=== PATIENT | female | born 1940 | race Caucasian/White ===

== ENCOUNTER 2016-10-21 10:48 | Inpatient (IN) ==
[2016-10-17 17:07] LABS: Basophils # (Auto) 0 K/mcL (0.0-0.3); Basophils % (Auto) 0.3 % (0.0-2.0); Eosinophils # (Auto) 0.4 K/mcL (0.0-0.7); Eosinophils % (Auto) 4.9 % (0.0-7.0); Granulocytes % (Auto) 65.3 % (38.0-78.0); Lymphocytes # (Auto) 1.5 K/mcL (1.5-4.8); Lymphocytes % (Auto) 18.7 % (15.5-49.0); Mean Cell Volume 76.7 fL (80.0-100.0); Mean Corpuscular HGB Conc 31.4 g/dL (31.0-36.0); Mean Corpuscular Hemoglobin 24.1 pg (26.0-34.0); Monocytes # (Auto) 0.9 K/mcL (0.1-0.9); Monocytes % (Auto) 10.8 % (1.0-9.0); Platelet Count 507 K/mcL (140-440); RBC 3.84 M/mcL (4.00-5.20); Red Cell Distribution Width 16.7 % (11.5-14.5)
[2016-10-17 17:11] LABS: Appearance,Urine HAZY; Bacteria,Urine 0 /hpf (0); Bilirubin,Urine NEG (NEG); Calcium Oxalate Crystals,Urine FEW /hpf (0); Color,Urine YELLOW; Glucose,Urine (UA) NEGATIVE (NEG); Leukocyte Esterase,Urine 75 /uL (NEG); Mucus,Urine FEW /hpf (0); Nitrate,Urine NEG (NEG); Protein,Urine NEG (NEG); Specific Gravity,Urine 1.016 (1.000-1.035); Urine Blood NEG mg/dL (<0.03); Urine Hyaline Cast 1 /lpf (0-2); Urine RBC < 1 /hpf (0-1); Urine Squamous Epithelial Cell 4 /hpf (0-4); Urine Transitional Epi Cells 1 /hpf (0-2); Urine WBC 7 /hpf (0-4); Urobilinogen,Urine NEG (NEG)
[2016-10-17 17:22] LABS: Blood Urea Nitrogen 18 mg/dl (8-23)
[~2016-10-21 10:48] MED LIST: ACETAMINOPHEN 500 MG TABLET PO SCH; KETOROLAC 30 MG, ROPIVACAINE HCL/PF 49.5 ML, EPINEPHrine 0.5 MG, 0.9 % SODIUM CHLORIDE ... IJ ONE; PREGABALIN 150 MG CAPSULE PO SCH; ceFAZolin 1 GM VIAL IV SCH; oxyCODONE 10 MG TAB.ER.12H PO SCH
[2016-10-21] MEDS ORDERED: DEXAMETHASONE 10 MG/ML VIAL IV ONE (14:20)
[2016-10-21] MEDS ORDERED: LIDOCAINE HCL/PF 100 MG/5 ML SYRINGE IV ONE (14:20)
[2016-10-21] MEDS ORDERED: fentaNYL 250 MCG/5 ML VIAL IV ONE (14:20)
[2016-10-21] MEDS ORDERED: PROPOFOL 200 MG/20 ML VIAL IV ONE (14:20)
[2016-10-21] MEDS ORDERED: ONDANSETRON 4 MG/2 ML VIAL IV ONE (14:20)
[2016-10-21] MEDS ORDERED: MIDAZOLAM 5 MG/5 ML VIAL IV ONE (14:20)
[2016-10-21] MEDS ORDERED: ROPIVACAINE HCL/PF 30 ML VIAL IJ ONE (14:20)
[2016-10-21] MEDS ORDERED: TRANEXAMIC ACID 1,000 MG/10 ML VIAL IV ONE (14:20)
[2016-10-21] MEDS ORDERED: GENTAMICIN SULFATE 800 MG/20 ML VIAL IR ONE (14:56)
[2016-10-21] MEDS ORDERED: TOBRAMYCIN SULFATE 1.2 GM VIAL TOPICAL ONE ×2 (14:56)
[2016-10-21] MEDS ORDERED: diphenhydrAMINE 50 MG/ML VIAL IV PRN (15:12)
[2016-10-21] MEDS ORDERED: FLUMAZENIL 0.1 MG/ML ML IV PRN (15:12)
[2016-10-21] MEDS ORDERED: ONDANSETRON 4 MG/2 ML VIAL IV PRN ×2 (15:12→15:40)
[2016-10-21] MEDS ORDERED: METOPROLOL TARTRATE 5 MG/5 ML VIAL IV PRN (15:12)
[2016-10-21] MEDS ORDERED: ePHEDrine 50 MG/ML AMPUL IV PRN (15:12)
[2016-10-21] MEDS ORDERED: NALOXONE HCL 0.4 MG/ML VIAL IV PRN (15:12)
[2016-10-21] MEDS ORDERED: IPRATROPIUM/ALBUTEROL 3 ML AMPUL.NEB NEB PRN (15:12)
[2016-10-21] MEDS ORDERED: PROMETHAZINE 25 MG/ML VIAL IV PRN (15:12)
[2016-10-21] MEDS ORDERED: HYDROmorphone 2 MG/ML SYRINGE IV PRN ×2 (15:12→17:13)
[2016-10-21] MEDS ORDERED: ATROPINE SULFATE 0.4 MG/ML VIAL IV PRN (15:12)
[2016-10-21] MEDS ORDERED: BENZOCAINE/MENTHOL 1 LOZENGE PO PRN ×2 (15:12→15:40)
[2016-10-21] MEDS ORDERED: METHOCARBAMOL 1,000 MG/10 ML VIAL IV PRN (15:12)
[2016-10-21] MEDS ORDERED: MEPERIDINE 25 MG/ML SYRINGE IV PRN (15:12)
[2016-10-21] MEDS ORDERED: LACTATED RINGERS 1,000 ML IV SCH (15:15)
[2016-10-21] MEDS ORDERED: FLEETS ADULT ENEMA PR PRN (15:40)
[2016-10-21] MEDS ORDERED: POLYETHYLENE GLYCOL 3350 17 GM PACKET PO PRN (15:40)
[2016-10-21] MEDS ORDERED: TRANEXAMIC ACID 1,000 MG/10 ML VIAL IV SCH (15:40)
[2016-10-21] MEDS ORDERED: ACETAMINOPHEN 325 MG TABLET PO PRN (15:40)
[2016-10-21] MEDS ORDERED: BISACODYL 10 MG SUPP.RECT PR PRN (15:40)
[2016-10-21] MEDS ORDERED: MAGNESIUM HYDROXIDE 30 ML ORAL.SUSP PO PRN (15:40)
--- NOTE | 2016-10-21 15:50 | Brief Operative Note ---
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
[2016-10-21] MEDS: fentaNYL 100 MCG/2 ML VIAL IV PRN ×3 (15:52→16:04)
--- NOTE | 2016-10-21 16:12 | XRay Report ---
CLINICAL INFORMATION: Postop hemiarthroplasty COMPARISON: 03/11/2016 FINDINGS: Hemiarthroplasty changes of the lateral compartment tibiofemoral joint are noted. The lateral tibial plateau component is depressed approximately 3 mm with respect to the anatomic medial tibial plateau. Significance is unknown. No other osseous abnormality. Soft tissue swelling noted.. IMPRESSION: Lateral compartment tibiofemoral arthroplasty changes as described Interpreted and Authenticated by: Vahid Sanchez 10/21/16
[2016-10-21] MEDS ORDERED: SODIUM CHLORIDE 0.9% IV SCH (16:30)
[2016-10-21] MEDS ORDERED: GENTAMICIN SULFATE IV SCH (16:30)
[2016-10-21] MEDS: KETOROLAC 15 MG/ML VIAL IV SCH ×2 (17:33→23:55)
[2016-10-21] MEDS: 0.45 % SODIUM CHLORIDE 1,000 ML IV SCH (17:48)
[2016-10-21] MEDS: ASPIRIN 325 MG ENTERIC COATED TABLET PO SCH (20:23)
[2016-10-21] MEDS: HYDROcodone/APAP 10/325MG TABLET PO PRN (20:23)
[2016-10-21] MEDS: CALCIUM (OYSTER SHELL) 500 MG TABLET PO SCH (20:23)
[2016-10-21] MEDS: DOCUSATE SODIUM 100 MG CAPSULE PO SCH (20:23)
[2016-10-21] MEDS: SENNOSIDES 1 TABLET PO SCH (20:24)
[2016-10-21] MEDS: MINOCYCLINE 100 MG CAPSULE PO SCH (20:59)
[2016-10-21] MEDS ORDERED: DOCUSATE SODIUM 100 MG CAPSULE PO SCH (21:00)
[2016-10-21] MEDS ORDERED: RED YEAST RICE 1200 MG PO SCH (21:00)
[2016-10-21] MEDS ORDERED: CRANBERRY 400 MG PO SCH (21:00)
[2016-10-21] MEDS: CLINDAMYCIN 600 MG in DEXTROSE 5% IN WATER 50 ML IV SCH (21:07)
[2016-10-21] MEDS: 0.9 % SODIUM CHLORIDE 10 ML SYRINGE IV SCH (21:13)
[2016-10-22] MEDS: CLINDAMYCIN 600 MG in DEXTROSE 5% IN WATER 50 ML IV SCH (05:24)
[2016-10-22] MEDS: 0.9 % SODIUM CHLORIDE 10 ML SYRINGE IV SCH ×3 (05:26→20:27)
[2016-10-22] MEDS: KETOROLAC 15 MG/ML VIAL IV SCH ×3 (05:28→17:40)
[2016-10-22] MEDS: PANTOPRAZOLE 40 MG TABLET PO SCH (07:09)
[2016-10-22] MEDS: LEVOTHYROXINE 75 MCG TABLET PO SCH (07:10)
[2016-10-22] MEDS: 0.45 % SODIUM CHLORIDE 1,000 ML IV SCH ×2 (07:12)
--- NOTE | 2016-10-22 07:51 | Orthopedic Progress Note ---
Subjective Patient information: Note initiated : 10/22/16 at 7:50 am Service Date, if different from initiated Date: [] Patient: Elaine Pittman 76 y/o F admitted on 10/21/16 for First Stage Revision Total Knee - Removal of Knee. Chief Complaint: [Pt is stable this morning on post operative day 1 without any significant concerns or complaints. Patients vital signs have remained stable. Patients dressing is dry and exhibits a grossly intact neurovascular and neuromotor exam. Patients 10 point ROS is otherwise negative. ] Objective Vital signs: Vital Signs Temp Pulse Pulse Resp BP BP Pulse Ox 10/22/16 03:52 97.5 F L 82 18 122/70 96 10/22/16 00:00 96.6 F L 79 18 128/75 96 10/21/16 21:37 95 10/21/16 20:00 97.8 F 80 18 117/66 96 10/21/16 17:56 77 138/76 96 10/21/16 17:41 74 134/76 97 10/21/16 17:11 77 144/83 95 10/21/16 16:56 82 137/72 95 10/21/16 16:41 79 139/75 94 10/21/16 16:25 98.1 F 79 17 133/60 96 10/21/16 16:10 98.1 F 82 17 142/69 133/62 96 10/21/16 15:55 84 15 142/69 117/58 98 10/21/16 15:40 98.1 F 89 15 112/60 98 10/21/16 10:48 98.1 F 88 20 108/65 95 Intake and Output 10/21/16 10/22/16 10/22/16 21:59 05:59 13:59 Intake Total 2334 / 2334 100 / 100 Output Total 650 / 650 1924 / 1925 Balance 1684 / 1684 -1825 / -1825 Intake: IV 54 / 54 Dextrose 5% in Water 50 54 / 54 ml @ 100 mls/hr IV Q8H KOTA with Cleocin 600 mg Rx#:[id number] Oral 480 / 480 100 / 100 IV - Manual Only 1800 / 1800 Output: Urine Catheter Amount 600 / 600 1924 / 1924 Estimated Blood Loss 50 / 50 Other: Meal Dinner Pitts, fruit cup, cheese stick Percent of Meal Consumed 100% 100% Feeding Ability Independent Independent Weight 207 lb 8 oz Intake & Output: Intake & Output 10/21/16 10/22/16 10/22/16 21:59 05:59 13:59 Intake Total 2334 / 2334 100 / 100 Output Total 650 / 650 1924 Balance 1684 / 1684 -1825 / -1825 Weight 207 lb 8 oz Intake: IV 54 / 54 Dextrose 5% in Water 50 54 / 54 ml @ 100 mls/hr IV Q8H KOTA with Cleocin 600 mg Rx#:[id number] Oral 480 / 480 100 / 100 IV - Manual Only 1800 / 1800 Output: Urine Catheter Amount 600 / 600 1924 Estimated Blood Loss 50 / 50 Other: Meal Dinner Pitts, fruit cup, cheese stick Percent of Meal Consumed 100% 100% Feeding Ability Independent Independent Incision: Yes healing Incision clean and dry: Yes Dressing: Yes clean, Yes dry Weight bearing status: partial Neurological exam IM: Yes motor sensory intact, Yes neurovascular intact Extremities exam IM: Yes Foot pink and warm, Yes neurovascular intact - Labs CBC & BMP: 10/22/16 05:35 10/17/16 15:50 Labs: Orthopedic Labs 10/17/16 15:50 PT 13.8 INR 1.0 APTT 40 H 10/22/16 10/17/16 05:35 15:50 Hgb 9.3 L Hct 27.8 L 29.4 L Assessment and Plan (1) 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 We will f/u with the patient within 2-3 weeks for wound check. Status: Acute
--- NOTE | 2016-10-22 07:54 | Discharge Summary ---
Ortho Discharge - TKA - Patient Instructions Diet: Regular Diet Activity: activity as tolerated, weight bearing as tolerated Total Knee Protocol: For Total Knee: Start ROM ALISIA with stationary bike or rocking chair. Work on gaining full extension of knee. Posterior dislocation precautions provided. Hip abductor strengthening and gait training instructions provided. Apply Cryocuff as instructed. 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
--- NOTE | 2016-10-22 08:06 | Operative Note ---
DATE OF OPERATION: 10/21/2016 PREOPERATIVE DIAGNOSIS: Septic right knee with partial lateral knee replacement. POSTOPERATIVE DIAGNOSIS: Septic right knee with partial lateral knee replacement. PROCEDURE: Partial lateral compartment first stage knee replacement with antibiotic cement. SURGEON: Dar Finnegan MD MAIL HANDLER EQUIPMENT OPERATOR: Bronson Walton PA-C ANESTHESIA: General LMA anesthesia. COMPLICATIONS: None. TOTAL TOURNIQUET TIME: 43 minutes. IMPLANTS PLACED: Size 3 femur and size 3 tibial baseplate with a 12 mm poly. DESCRIPTION OF PROCEDURE: The patient was brought to the operating room and put to sleep with general LMA anesthesia. Once asleep, the patient had the right leg sterilely prepped and draped in the usual sterile fashion. Once done, we confirmed this was the operative site. Pre-op antibiotics were given and tranexamic acid. A midline incision was made and a lateral approach performed. There was some cloudy fluid that was removed with some bloody fluid. We performed a complete synovectomy throughout the medial, superior and lateral pouches. We then used flexible osteotomes to remove the femoral and tibial baseplates and the poly. Once this was done, we then thoroughly prepared the bone. The bony surface on the tibia had a membrane that had grown over the bone, seemed to be an indication of some infection under the baseplate. We then placed antibiotics with gentamicin and tobramycin. This was placed with a #3 tibial baseplate until dry, the femoral component also #3 femur until dry. Once this was done, we trialed a 10, 11, and 12 poly. The 12 poly seemed to be the most appropriate. We irrigated thoroughly and then used 2 bags, 3 liters each through the knee with gentamicin in the bag. We also used IrriSept to wash out the knee. Once this had all been completed, we then closed the knee with #0 double-armed Maxon interlocking stitch laterally. The patient tolerated this well. There was no complication. RBH:elise Job ID: [id number] Doc ID: [id number] Dar Finnegan MD
[2016-10-22] MEDS: CYANOCOBALAMIN (VITAMIN B-12) 500 MCG TABLET PO SCH (08:59)
[2016-10-22] MEDS: VITAMIN D3 1,000 UNIT TABLET PO SCH (09:00)
[2016-10-22] MEDS ORDERED: MELOXICAM 7.5 MG TABLET PO SCH (09:00)
[2016-10-22] MEDS: ASPIRIN 325 MG ENTERIC COATED TABLET PO SCH ×2 (09:01→18:59)
[2016-10-22] MEDS: DILTIAZEM 240 MG CAP.XL.24H PO SCH (09:01)
[2016-10-22] MEDS: CALCIUM (OYSTER SHELL) 500 MG TABLET PO SCH ×2 (09:01→19:00)
[2016-10-22] MEDS: MINOCYCLINE 100 MG CAPSULE PO SCH (09:02)
[2016-10-22] MEDS: LACTOBACILLUS 1 CAPSULE PO SCH (09:02)
[2016-10-22] MEDS: DOCUSATE SODIUM 100 MG CAPSULE PO SCH ×2 (09:02→19:01)
[2016-10-22] MEDS: HYDROcodone/APAP 10/325MG TABLET PO PRN (12:09)
--- NOTE | 2016-10-22 14:16 | Internal Medicine Consult Note ---
Medical - CN: HPI - Data of Consult Consult date: 10/22/16 Requesting Physician: [f_Reg Attending Provider] Primary Care Provider: [f_Reg Prim Care Provider] Family Provider: [f_Reg Family Provider] - Consult Narrative Reason for consult: Septic Arthrtitis Antibiotic Selection. History of present illness: Ms. Pittman is a 76 year old female who was admitted to the hospital by Dr Finnegan for Right knee debridement due to septic arthritis. The patient has h/o trauma to the knee in february last year, after which she developed septic arthritis. the patient has had debridement done in the past for same. Treated with nearly 6 weeks of IV vancomycin (to which she developed significant side effects), She was later changed to daptomycin for 4 weeks with resolution of her symptoms. Dr Ignacio her infectious disease specialist who was following her advised her to be on doxycycline 100mg bid for 3 months for prophylaxis. It seems that the patient did not take the prophylaxis due to affordibility. She was allergic to sulpha. Pt had repeat pain and flare up of the knee joint again last month. She was seen by ortho again, and Knee tap done, which had cloudy synovial fluid. Microbiology done showed MRSA. In the past also based on the notes from Dr Ignacio it seems the patient had MRSA. Patient right knee was debrided yesterday and medicine was consulted for selection of antibiotics. Patient sensitivity reviewed 2 strains of MRSA resitant to penicillin, cephalosporin, but sensitive to tetracycline, bactrim, rifampin, vancomycin, gentamycin, and clindamycin. CC: [f_Reg Attending Provider] - Constitutional Constitutional: Present: fatigue. Absent: chills, fever(s) - EENT Eyes: Absent: blind spots, blurry vision Nose, mouth and throat: Absent: bleeding gums, change in voice - Cardiovascular Cardiovascular: Absent: chest pain, chest pain at rest, palpatations, syncope - Respiratory Respiratory: Absent: cough - Gastrointestinal Gastrointestinal: Present: constipation. Absent: abdominal pain, nausea, vomiting - Genitourinary Genitourinary: Absent: hematuria, urinary frequency, urinary hesitancy - Musculoskeletal Musculoskeletal: Present: arthralgias, joint swelling - Integumentary Integumentary: Absent: jaundice - Neurological Neurological: Absent: focal weakness, syncope, vertigo - Psychiatric Psychiatric: Absent: anxiety, depression - Endocrine Endocrine: Absent: polydipsia, polyphagia, polyuria - Hematologic/Lymphatic Hematologic/Lymphatic: Absent: easy bleeding, easy bruising - Allergic/Immunologic Allergic/Immunologic: Absent: uticaria, wheezing Medical - CN: PMH Medical history: Medical History Bursitis of knee (Acute) UTI (urinary tract infection) (Acute) Vomiting (Acute) Hypokalemia (Acute) Nausea and vomiting (Acute) Hypokalemia (Acute) Rash and nonspecific skin eruption (Acute) Atypical chest pain (Acute) Plantar fasciitis of right foot (Acute) Strain of right knee (Acute) Venous embolism and thrombosis (Acute) Urinary tract infection (Acute) Thyroid nodule (Acute) Red blood cell antibody positive (Acute) Paroxysmal atrial fibrillation (Chronic) Osteoporosis screening (Acute) Acquired hypothyroidism (Chronic 11/17/13) Hyperlipidemia (Chronic) Fibrocystic breast disease (Chronic) Dyspepsia (Chronic) Degenerative arthritis (Chronic) Colon polyps (Chronic) Chest pain (Acute) Breast lump (Acute 03/17/13) Back pain (Chronic) Aortic regurgitation (Chronic) Anticoagulant long-term use (Chronic 11/09/13) Surgical history: Past Surgical History Hx of total shoulder replacement (Acute) 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 Medical - CN: Meds Home Medications Medication Instructions Recorded Confirmed Type cholecalciferol (vitamin D3) 1,000 1 tab PO DAILY tab 02/09/15 10/21/16 History unit tablet levothyroxine 75 mcg tablet 75 mcg PO ACB tab 02/09/15 10/21/16 History red yeast rice 600 mg capsule 1,200 mg PO BID cap 02/09/15 10/21/16 History diltiazem ER 240 mg 240 mg PO QDAY 90 Days 04/01/16 10/21/16 Rx capsule,extended release meloxicam 7.5 mg tablet 7.5 mg PO QDAY 90 Days 05/13/16 10/21/16 Rx Calcium Carbonate [Calcium] 500 mg PO BID 09/11/16 10/21/16 History Cranberry 400 mg PO BID 09/11/16 10/21/16 History Docusate Sodium [Colace] 300 mg PO HS 09/11/16 10/21/16 History Lactobacillus [Culturelle] 1 cap PO DAILY 09/11/16 10/21/16 History Omeprazole [Prilosec] 20 mg PO ACB 09/11/16 10/21/16 History cyanocobalamin (vit B-12) 1,000 1,000 mcg PO QDAY 10/07/16 10/21/16 History mcg tablet HYDROcodone/APAP 10/325MG [[place] 1 tab PO BIDP PRN 10/17/16 10/21/16 History 10/325Mg] Minocycline [Minocin] 100 mg PO BID 10/17/16 10/21/16 History Macrobid 100 mg Capsule 100 mg PO BID PRN 10/19/16 10/19/16 History Aspirin [Ecotrin] 325 mg PO BID #60 tab.ec 10/22/16 Rx Docusate Sodium [Colace] 100 mg PO BID #60 capsule 10/22/16 Rx HYDROcodone/APAP 10/325MG [[place] 1 - 2 tab PO Q4HP PRN #75 tablet 10/22/16 Rx 10/325Mg] Allergies Allergy/AdvReac Type Severity Reaction Status Date / Time vancomycin Allergy Severe Redness of Verified 10/04/16 15:30 Skin morphine Allergy Mild Rash Verified 10/04/16 15:30 Sulfa (Sulfonamide Allergy Mild Rash Verified 10/04/16 15:30 Antibiotics) aspirin AdvReac Mild Gastrointestinal Verified 10/04/16 15:30 Upset Medical - CN: Exam - Constitutional Vitals: Temp Pulse Resp BP Pulse Ox 98.3 F 97 H 18 142/83 95 10/22/16 12:00 10/22/16 12:00 10/22/16 12:00 10/22/16 12:00 10/22/16 12:00 General appearance: cooperative, no acute distress, obese - Head Head exam: Present: atraumatic, normal inspection - Eye Eye exam: Present: PERRL. Absent: periorbital swelling, periorbital tenderness , scleral icterus - ENT ENT exam: Present: mucous membranes moist, normal external ear exam - Neck Neck exam: Present: normal inspection - Respiratory Respiratory exam: Present: normal respiratory exam. Absent: accessory muscle use, respiratory distress, rhonchi, stridor, wheezes - Cardiovascular Cardiovascular exam: Present: normal rate and rhythm, +S1, +S2, systolic murmur - GI/Abdominal GI/Abdominal exam: Present: normal bowel sounds, soft. Absent: guarding, hernia , mass, rebound - Extremities Exam Additional comments: right leg in dression. no gross edema in left leg - Back Exam Back exam: Present: normal inspection. Absent: paraspinal tenderness - Neurological Exam Neurological exam: Present: alert, CN II-XII intact, oriented X3 - Psychiatric Psychiatric exam: Absent: agitated, anxious, flat affect - Skin Skin exam: Absent: urticaria, vesicles, warm Medical - CN: Result - Labs CBC & Chem 7: 10/22/16 05:35 10/17/16 15:50 Labs: Short CBC 10/22/16 Range/Units 05:35 Hct 27.8 L (36.0-48.0) % Medical - CN: A/P (1) Septic arthritis Status: Acute (2) Constipation Status: Acute - Narrative A/P Narrative: the patient has recurrent septic arthritis. Plan to start her on daptomycin 6mg/kg She will need a picc line antibiotic for 6 weeks as per ortho Outpatient follow up with Dr Ignacio Infectious disease. She will need weekly cbc, cmp, esr, crp nd CK levels Will get baseline labs of above today. Picc line today. For her consipation start her on senna ds at bed time.
[2016-10-22] MEDS ORDERED: 0.9 % SODIUM CHLORIDE 10 ML SYRINGE IV PRN (14:24)
[2016-10-22 14:48] LABS: Basophils # (Auto) 0 K/mcL (0.0-0.3); Basophils % (Auto) 0.1 % (0.0-2.0); Eosinophils # (Auto) 0.1 K/mcL (0.0-0.7); Eosinophils % (Auto) 1.2 % (0.0-7.0); Granulocytes % (Auto) 84.7 % (38.0-78.0); Lymphocytes # (Auto) 0.8 K/mcL (1.5-4.8); Mean Cell Volume 76.7 fL (80.0-100.0); Mean Corpuscular Hemoglobin 23.8 pg (26.0-34.0); Monocytes # (Auto) 0.8 K/mcL (0.1-0.9); Platelet Count 417 K/mcL (140-440); RBC 3.91 M/mcL (4.00-5.20); Red Cell Distribution Width 17.4 % (11.5-14.5)
[2016-10-22 15:00] LABS: ALT/SGPT < 5 U/l (0-40); Albumin 3.4 gm/dL (3.2-5.2); Albumin/Globulin Ratio 0.8 (1.0-2.3); Alkaline Phosphatase 120 U/L (39-117); Bilirubin,Direct < 0.2 mg/dL (0.0-0.3); Blood Urea Nitrogen 18 mg/dl (8-23); C-Reactive Protein 5.4 mg/dl (0.0-0.8); Creatine Kinase 33 IU/L (24-170); Gamma Glutamyl Transpeptidase 17 U/L (5-36); Phosphorous 1.9 mg/dL (2.7-4.5); Uric Acid 5.9 mg/dL (2.5-8.0)
[2016-10-22] MEDS: DAPTOmycin 500 MG VIAL IV SCH (15:09)
[2016-10-22 16:09] LABS: Erythrocyte Sedimentation Rate 101 mm/hr (0-20)
[2016-10-22] MEDS: SENNOSIDES/DOCUSATE SODIUM 1 TAB TABLET PO SCH (18:59)
[2016-10-22] MEDS: SENNOSIDES 1 TABLET PO SCH (19:01)
[2016-10-22] MEDS: TEMAZEPAM 15 MG CAPSULE PO PRN (20:26)
[2016-10-23] MEDS: KETOROLAC 15 MG/ML VIAL IV SCH ×4 (00:07→11:24)
[2016-10-23] MEDS: PANTOPRAZOLE 40 MG TABLET PO SCH (06:43)
[2016-10-23] MEDS: LEVOTHYROXINE 75 MCG TABLET PO SCH (06:43)
[2016-10-23] MEDS: 0.9 % SODIUM CHLORIDE 10 ML SYRINGE IV SCH ×3 (06:59→20:46)
--- NOTE | 2016-10-23 07:53 | Orthopedic Progress Note ---
Subjective Patient information: Note initiated : 10/23/16 at 7:51 am Service Date, if different from initiated Date: [] Patient: Elaine Pittman 76 y/o F admitted on 10/21/16 for First Stage Revision Total Knee - Removal of Knee. Chief Complaint: [eating well and will dc to home tomorrow] Objective Vital signs: Vital Signs Temp Pulse Resp BP Pulse Ox 10/23/16 07:39 96.7 F L 16 140/78 96 10/23/16 04:00 98.9 F 82 16 130/67 97 10/22/16 23:22 97.6 F 93 H 18 149/76 93 10/22/16 20:00 98.4 F 88 18 132/71 94 10/22/16 15:25 96.5 F L 86 16 128/64 94 10/22/16 12:00 98.3 F 97 H 18 142/83 95 10/22/16 07:57 16 97 Intake and Output 10/22/16 10/23/16 10/23/16 21:59 05:59 13:59 Intake Total 1210 / 1210 120 / 120 Output Total 1175 / 1175 1325 / 1325 500 / 500 Balance 35 / 35 -1205 / -1205 -500 / -500 Intake: Oral 1210 / 1210 120 / 120 Output: Void Amount 1175 / 1175 1325 / 1325 500 / 500 Other: Meal Dinner Percent of Meal Consumed 75% Feeding Ability Independent # Voids 1 Weight 204 lb Intake & Output: Intake & Output 10/22/16 10/23/16 10/23/16 21:59 05:59 13:59 Intake Total 1210 / 1210 120 / 120 Output Total 1175 / 1175 1325 / 1325 500 / 500 Balance 35 / 35 -1205 / -1205 -500 / -500 Weight 204 lb Intake: Oral 1210 / 1210 120 / 120 Output: Void Amount 1175 / 1175 1325 / 1325 500 / 500 Other: Meal Dinner Percent of Meal Consumed 75% Feeding Ability Independent # Voids 1 Incision: Yes healing Incision clean and dry: Yes Dressing: Yes clean Weight bearing status: full Neurological exam IM: Yes abnormal gait, Yes oriented X3, Yes neurovascular intact Extremities exam IM: Yes Foot pink and warm (dc home once out patient antibiotics will be ready and picc line is done), Yes neurovascular intact - Labs CBC & BMP: 10/22/16 13:25 10/22/16 13:25 Labs: Orthopedic Labs 10/17/16 15:50 PT 13.8 INR 1.0 APTT 40 H 10/22/16 10/22/16 10/17/16 13:25 05:35 15:50 Hgb 9.3 L 9.3 L Hct 30.0 L 27.8 L 29.4 L
[2016-10-23] MEDS: DILTIAZEM 240 MG CAP.XL.24H PO SCH (09:01)
[2016-10-23] MEDS: CALCIUM (OYSTER SHELL) 500 MG TABLET PO SCH ×2 (09:02→20:39)
[2016-10-23] MEDS: ASPIRIN 325 MG ENTERIC COATED TABLET PO SCH ×2 (09:02→20:39)
[2016-10-23] MEDS: VITAMIN D3 1,000 UNIT TABLET PO SCH (09:02)
[2016-10-23] MEDS: CYANOCOBALAMIN (VITAMIN B-12) 500 MCG TABLET PO SCH (09:02)
[2016-10-23] MEDS: DOCUSATE SODIUM 100 MG CAPSULE PO SCH ×2 (09:02→21:12)
[2016-10-23] MEDS: LACTOBACILLUS 1 CAPSULE PO SCH (09:03)
--- NOTE | 2016-10-23 10:55 | XRay Report ---
CLINICAL INFORMATION: PICC PLACEMENT COMPARISON: None. FINDINGS: PICC line tip overlies the SVC right atrial junction in satisfactory position. Mild cardiomegaly is unchanged. Mediastinum and pulmonary vessels are normal. Lungs show only minor lingular scarring. No effusions. IMPRESSION: No acute disease. PICC line satisfactory position Interpreted and Authenticated by: Vahid Sanchez 10/23/16
--- NOTE | 2016-10-23 13:01 | Internal Med Progress Note ---
Medical - PN: Subj Patient information: Note initiated : 10/23/16 at 12:59 pm Service Date, if different from initiated Date: [] Patient: Elaine Pittman 76 y/o F admitted on 10/21/16 for First Stage Revision Total Knee - Removal of Knee. Chief Complaint: [] Interval history: Pt seen examined no acute concerns. started on daptomycin tolerating it well She is awaiting a PICC line placement today, continue PT. Pertinent ROS: Denies headache, dizziness Denies chest pain, palpitations Denies cough or shortness of breath Denies abdominal pain, nausea or vomiting. - Constitutional Vitals: Vital Signs Temp Pulse Resp BP Pulse Ox 96.7 F L 82 16 140/78 96 10/23/16 07:39 10/23/16 04:00 10/23/16 07:39 10/23/16 07:39 10/23/16 07:39 Period Temp Pulse Resp BP Sys/Oh Pulse Ox Last 24 Hr 96.5 F-98.9 F 82-93 16-18 128-149/64-78 93-97 Intake and Output 10/22/16 10/23/16 10/23/16 21:59 05:59 13:59 Intake Total 1210 / 1210 120 / 120 180 / 180 Output Total 1175 / 1175 1325 / 1325 500 / 500 Balance 35 / 35 -1205 / -1205 -320 / -320 Weight 204 lb Intake & Output: Intake & Output 10/22/16 10/23/16 10/23/16 21:59 05:59 13:59 Intake Total 1210 / 1210 120 / 120 180 / 180 Output Total 1175 / 1175 1325 / 1325 500 / 500 Balance 35 / 35 -1205 / -1205 -320 / -320 Weight 204 lb Intake: Oral 1210 / 1210 120 / 120 180 / 180 Output: Void Amount 1175 / 1175 1325 / 1325 500 / 500 Other: Meal Dinner Breakfast Percent of Meal Consumed 75% 50% Feeding Ability Independent # Voids 1 1 Exam: Constitutional; Afebrile, cooperative, alert, not in distress. Eyes- No icterus, No periorbital swelling Ears- Ext ear normal, hearing normal to conversation. Neck- Midline trachea, supple Respiratory system: Air Entry equal on both sides, No crackles or wheezing, no rhonchi. CVS- Rate rhythm regular, S1,S2 heard, no gallop, no rub. Abdomen- Soft nontender abdomen, no organomegaly, no tenderness, no guarding or rigidity, INTERIOR PANELER- AOOx3, moving all extremities, no focal deficit noted. Medical - PN: Obj Da - Labs CBC & Chem 7: 10/22/16 13:25 10/22/16 13:25 Labs: Abnormal Lab Results 10/22/16 10/22/16 10/22/16 13:25 13:25 05:35 WBC 11.4 H RBC 3.91 L Hgb 9.3 L Hct 30.0 L 27.8 L MCV 76.7 L MCH 23.8 L RDW 17.4 H Gran % 84.7 H Lymph % (Auto) 7.0 L Gran # 9.6 H Lymph # 0.8 L ESR 101 H Glucose 140 H Phosphorus 1.9 L Alkaline Phosphatase 120 H C-Reactive Protein 5.4 H Globulin 4.5 H Albumin/Globulin Ratio 0.8 L Meds: Medications Acetaminophen (Tylenol) 650 mg PO Q6HP PRN PRN Reason: PAIN/FEVER > 101 Last Admin: 10/23/16 06:43 Dose: 650 mg Acetaminophen/Hydrocodone Bitart ([place] 10/325mg) 0 tab PO Q4HP PRN PRN Reason: Pain Last Admin: 10/22/16 12:09 Dose: 1 tab Aspirin (Ecotrin) 325 mg PO BID [facility] Last Admin: 10/23/16 09:02 Dose: 325 mg Bisacodyl (Dulcolax) 10 mg [place] Q2-3DAYS PRN PRN Reason: Constipation Last Admin: 10/23/16 12:40 Dose: 10 mg Calcium Carbonate/Glycine (Oscal) 500 mg PO BID [facility] Last Admin: 10/23/16 09:02 Dose: 500 mg Cyanocobalamin (Vitamin B-12) 1,000 mcg PO DAILY [facility] Last Admin: 10/23/16 09:02 Dose: 1,000 mcg Daptomycin (Cubicin) 560 mg 6 mg/kg (560 mg) IV Q24H [facility] Last Admin: 10/22/16 15:09 Dose: 560 mg Diltiazem HCl (Cardizem Cd) 240 mg PO DAILY [facility] Last Admin: 10/23/16 09:01 Dose: 240 mg Docusate Sodium (Colace) 100 mg PO BID [facility] Last Admin: 10/23/16 09:02 Dose: 100 mg Heparin Sodium (Porcine) (Heparin Flush) 2 ml IV Q12 [facility] Last Admin: 10/23/16 11:24 Dose: 2 ml Hydromorphone HCl (Dilaudid) 0 mg IV Q2HP PRN PRN Reason: Pain Lactobacillus Rhamnosus (Culturelle) 1 cap PO DAILY [facility] Last Admin: 10/23/16 09:03 Dose: 1 cap Levothyroxine Sodium (Synthroid) 75 mcg PO ACB [facility] Last Admin: 10/23/16 06:43 Dose: 75 mcg Magnesium Hydroxide (Milk Of Magnesia) 30 ml PO BIDP PRN PRN Reason: Constipation Ondansetron HCl (Zofran) 4 mg IV Q4HP PRN PRN Reason: Nausea And Vomiting Pantoprazole Sodium (Protonix) 40 mg PO QAMAC [facility] Last Admin: 10/23/16 06:43 Dose: 40 mg Polyethylene Glycol (Miralax) 17 gm PO DAILYP PRN PRN Reason: Constipation Senna (Senokot) 2 tab PO HS [facility] Last Admin: 10/22/16 19:01 Dose: Not Given Senna/Docusate Sodium (Senna Plus Tablet) 2 tab PO HS [facility] Last Admin: 10/22/16 18:59 Dose: 2 tab Sodium Biphosphate/Sodium Phosphate (Fleets Adult) 1 dose [place] Q3-4DAYS PRN PRN Reason: Constipation Sodium Chloride (Saline Flush) 10 ml IV Q8 [facility] Last Admin: 10/23/16 06:59 Dose: Not Given Sodium Chloride (Saline Flush) 10 ml IV UD PRN PRN Reason: FLUSH Temazepam (Restoril) 15 mg PO HSP PRN PRN Reason: Insomnia Last Admin: 10/22/16 20:26 Dose: 15 mg Throat Lozenges (Cepacol) 1 lozenge PO PRN PRN PRN Reason: Sore Throat Vitamin D (Vitamin D3) 1,000 unit PO DAILY [facility] Last Admin: 10/23/16 09:02 Dose: 1,000 unit Medical - PN: A/P - Time Spent With Patient Total time spent is greater than 50% in coordination of care (as documented) at patient's floor/unit and/or counseling patient: (1) Septic arthritis Status: Acute Current Visit: Yes - Narrative A/P Narrative: Continue IV daptomycin Get PICC line, Stable for discharge from medicine stand point. She will need daptomycin fo 6 weeks, Follow up with Dr Ignacio as outpatient She will need weekly cbc, cmp, esr ,crp and CK levels while on daptomycin. Medicine team will sign off thanks for letting me participate in the care of your patient, appreciate it. Medical - PN: Qual - Stroke Symptom Onset Unknown: No - VTE Deep Vein Thrombosis/Pulmonary Embolism Present on Admission: No
[2016-10-23] MEDS ORDERED: traMADol 50 MG TABLET PO PRN (15:10)
[2016-10-23] MEDS: DAPTOmycin 500 MG VIAL IV SCH (15:23)
[2016-10-23] MEDS: SENNOSIDES/DOCUSATE SODIUM 1 TAB TABLET PO SCH (20:37)
[2016-10-23] MEDS: TEMAZEPAM 15 MG CAPSULE PO PRN (20:37)
[2016-10-23] MEDS: SENNOSIDES 1 TABLET PO SCH (21:12)
[2016-10-24] MEDS: HYDROcodone/APAP 10/325MG TABLET PO PRN ×4 (00:26→12:27)
[2016-10-24] MEDS: 0.9 % SODIUM CHLORIDE 10 ML SYRINGE IV SCH (05:03)
[2016-10-24] MEDS: LEVOTHYROXINE 75 MCG TABLET PO SCH (07:35)
[2016-10-24] MEDS: PANTOPRAZOLE 40 MG TABLET PO SCH (07:35)
--- NOTE | 2016-10-24 07:51 | Orthopedic Progress Note ---
Subjective Patient information: Note initiated : 10/24/16 at 7:50 am Service Date, if different from initiated Date: [] Patient: Elaine Pittman 76 y/o F admitted on 10/21/16 for First Stage Revision Total Knee - Removal of Knee. Chief Complaint: [feels and much improved and is eating well , no cp no sob] Objective Vital signs: Vital Signs Temp Pulse Resp BP Pulse Ox 10/24/16 07:00 97.2 F L 16 142/78 93 10/24/16 03:49 97.3 F L 89 16 160/80 96 10/24/16 00:00 96.5 F L 84 16 130/68 95 10/23/16 19:15 96.6 F L 82 16 130/70 94 10/23/16 16:00 98.5 F 91 H 18 138/82 96 10/23/16 12:00 96.7 F L 18 118/70 94 Intake and Output 10/23/16 10/24/16 10/24/16 21:59 05:59 13:59 Intake Total 1740 / 1740 Balance 1740 / 1740 Intake: Oral 1740 / 1740 Other: Meal Dinner Percent of Meal Consumed 90 Feeding Ability Independent # Voids 1 1 # Bowel Movements 1 Weight 198 lb Intake & Output: Intake & Output 10/23/16 10/24/16 10/24/16 21:59 05:59 13:59 Intake Total 1740 / 1740 Balance 1740 / 1740 Weight 198 lb Intake: Oral 1740 / 1740 Other: Meal Dinner Percent of Meal Consumed 90 Feeding Ability Independent # Voids 1 1 # Bowel Movements 1 Incision: Yes healing Incision clean and dry: Yes Dressing: Yes clean Weight bearing status: full Neurological exam IM: Yes oriented X3, Yes neurovascular intact Extremities exam IM: Yes Foot pink and warm (out patient antibiotics and will dc home today), Yes neurovascular intact - Labs CBC & BMP: 10/22/16 13:25 10/22/16 13:25 Labs: Orthopedic Labs 10/17/16 15:50 PT 13.8 INR 1.0 APTT 40 H 10/22/16 10/22/16 10/17/16 13:25 05:35 15:50 Hgb 9.3 L 9.3 L Hct 30.0 L 27.8 L 29.4 L
[2016-10-24] MEDS: ASPIRIN 325 MG ENTERIC COATED TABLET PO SCH (09:03)
[2016-10-24] MEDS: DOCUSATE SODIUM 100 MG CAPSULE PO SCH (09:03)
[2016-10-24] MEDS: CALCIUM (OYSTER SHELL) 500 MG TABLET PO SCH (09:03)
[2016-10-24] MEDS: DILTIAZEM 240 MG CAP.XL.24H PO SCH (09:03)
[2016-10-24] MEDS: LACTOBACILLUS 1 CAPSULE PO SCH (09:03)
[2016-10-24] MEDS: CYANOCOBALAMIN (VITAMIN B-12) 500 MCG TABLET PO SCH (09:03)
[2016-10-24] MEDS: VITAMIN D3 1,000 UNIT TABLET PO SCH (09:03)
[2016-10-24] MEDS: DAPTOmycin 500 MG VIAL IV SCH (11:56)
== END 2016-10-24 12:30 | disposition home or self-care (01) | DRG 468 ==
LOC: MEDSUR 10:48
PROVIDERS: ADMIT Orthopaedic Surgery; ATTEND Orthopaedic Surgery

== ENCOUNTER 2022-07-01 11:27 | Inpatient (IN) ==
[2022-06-28 20:17] LABS: Appearance,Urine CLEAR (Clear); Bilirubin,Urine NEGATIVE (Negative); Color,Urine YELLOW; Culture Indicated,Urine No; Glucose,Urine (UA) NEGATIVE (Negative); Ketones,Urine NEGATIVE (Negative); Leukocyte Esterase,Urine NEGATIVE /uL (Negative); Nitrate,Urine NEGATIVE (Negative); Protein,Urine NEGATIVE (Negative); Urine Blood NEGATIVE ery/mcL (Negative); Urobilinogen,Urine Normal
[2022-06-28 20:24] LABS: Basophils # (Auto) 0.02 K/mcL (0.00-0.30); Basophils % (Auto) 0.3 % (0.0-2.0); Eosinophils # (Auto) 0.19 K/mcL (0.00-0.70); Eosinophils % (Auto) 2.6 % (0.0-7.0); Hemoglobin 11.4 g/dL (11.2-15.7); Lymphocytes # (Auto) 1.61 K/mcL (1.50-4.80); Lymphocytes % (Auto) 22.5 % (15.5-49.0); Mean Cell Volume 86.1 fL (80.0-100.0); Mean Corpuscular HGB Conc 36.8 g/dL (31.0-36.0); Mean Platelet Volume 10.4 fL (8.8-12.5); Monocytes # (Auto) 0.88 K/mcL (0.10-0.90); Monocytes % (Auto) 12.3 % (1.0-12.0); Neutrophils % (Auto) 61.7 % (38.0-78.0); Platelet Count 358 K/mcL (140-440); Red Cell Distribution Width 19.1 % (11.5-14.5); WBC 7.2 K/mcL (4.5-11.0)
[2022-06-28 20:36] LABS: Blood Urea Nitrogen 14 mg/dL (8-23); Calcium 10.4 mg/dL (8.6-10.4); Carbon Dioxide 25 mmol/L (22-30); Chloride 96 mmol/L (96-108); Glomerular Filtration Rate 59; Glucose 96 mg/dL (70-105)
[2022-06-28 21:11] LABS: INR 1.1 (0.9-1.1); Partial Thromboplastin Time 32.1 sec (20.0-37.0)
--- NOTE | 2022-06-30 08:36 | EKG ---
[facility] Test Date: 2022-06-28 Pat Name: Elaine Pittman Department: [facility] Room: Gender: Female Public Health Epidemiologist: : 1940 Requested By: Yonis Arzola Order Number: [id number] Reading MD: Christian Mendoza Measurements Intervals [place] Rate: 99 P: 3 OH: 218 QRS: -16 QRSD: 90 T: -15 QT: 355 QTc: 456 Interpretive Statements Sinus rhythm Prolonged OH interval Abnormal R-wave progression, late transition LVH by voltage Borderline T abnormalities, diffuse leads Electronically Signed On 06-30-2022 8:35:35 PST by Christian Mendoza /[email or web address]/[email or web address]/[id number]
[~2022-07-01 11:27] MED LIST changes: +CELECOXIB 200 MG CAPSULE PO SCH; -KETOROLAC 30 MG, ROPIVACAINE HCL/PF 49.5 ML, EPINEPHrine 0.5 MG, 0.9 % SODIUM CHLORIDE ... IJ ONE; -PREGABALIN 150 MG CAPSULE PO SCH; +PREGABALIN 75 MG CAPSULE PO SCH; -ceFAZolin 1 GM VIAL IV SCH; +ceFAZolin 2 GM in DEXTROSE 5% IN WATER 50 ML IV SCH
[2022-07-01] MEDS: 0.9 % SODIUM CHLORIDE 9 ML, KETOROLAC 30 MG, ROPIVACAINE HCL/PF 49.5 ML, EPINEPHrine 0.... IJ SCH ×2 (12:32→14:56)
--- NOTE | 2022-07-01 13:42 | Brief Operative Note ---
Brief Operative Note Date of procedure: 07/01/22 Pre-op diagnosis: Right septic tka Post-op diagnosis: same Procedure: right tka revision Grafts/Implants: Yes Anesthesia: GETA Findings: septic tka Complications: none Surgeon: Dar Finnegan Pocket Maker: Bronson Walton Estimated blood loss (cc): 58 Tourniquet Time (Minutes): 56 Specimens Removed/Pathology: none sent Condition: stable Disposition: PACU
--- NOTE | 2022-07-01 13:52 | Discharge Plan ---
Discharge Instructions - TKA Patient Instructions Total Knee Protocol: For Total Knee: Start ROM ALISIA with stationary bike or rocking chair. Work on gaining full extension of knee. Posterior dislocation precautions provided. Hip abductor strengthening and gait training instructions provided. Apply Cryocuff as instructed. Additional Dressing Instructions: Leave Zip line closure patch intact until followup --May shower at anytime. Discharge Plan Patient/Caregiver Discharge Instructions Activity: ambulate only with your walker and as per physical therapy Diet: Regular Diet Prescriptions: New aspirin [Ecotrin Low Strength] 81 mg tablet,delayed release (DR/EC) 81 mg PO BID Qty: 60 0RF oxycodone 5 mg capsule 5 mg PO Q4H PRN (Reason: pain) Qty: 60 0RF docusate sodium 100 mg capsule 100 mg PO BID Qty: 60 0RF No Action red yeast rice 600 mg capsule 600 mg PO QAM Rx Instructions: administer with a meal or snack levothyroxine 125 mcg tablet 125 mcg PO QAM vitamin B complex [B Complex 1] tablet 1 tab PO QDAY ascorbic acid (vitamin C) 500 mg capsule 500 mg PO QDAY cranberry 400 MG capsule 400 mg PO BID multivitamin [One A Day Vitamin] Tablet 1 tab PO QAM alendronate 70 mg tablet 1 tab PO WEEKLY warfarin 2.5 mg tablet 1.25 mg PO DAILY Rx Instructions: SHE STOPPED TAKING IT 06/27/22 ON HER OWN acetaminophen-codeine 300-60 mg tablet 1 tab PO Q4HP PRN (Reason: Pain) calcium 1 tab PO DAILY famotidine 20 mg Tablet 20 mg PO BID doxycycline hyclate 100 mg capsule 1 cap PO BID clindamycin HCl 300 mg Capsule 600 mg PO BID lisinopril 20 mg tablet 1 tab PO QAM metoprolol tartrate 25 mg Tablet 25 mg PO BID Focus Factor 1 tab PO DAILY Other Ambulatory Orders: CPM Discharge Order (ONCE) Location: None Selected Ordered By: Bronson Walton Physical Therapy DC - TKA (Routine) Location: None Selected Ordered By: Bronson Walton Toilet Riser Discharge Order (ONCE) Location: None Selected Ordered By: Bronson Walton Walker (ONCE) Location: None Selected Ordered By: Bronson Walton Follow Up Plan Follow up with: Bronson Walton PA-C [Physician Head Of Merchandise Buying] - Patient Disposition: Home, Self-Care Prognosis: Good Rehab Potential: Good I certify that the patient requires SNF services: No Overall status at discharge: patient is progressing back to baseline Discharge Orders: Discharge Order (Routine); Ordered 07/02/22 Ordered By: Bronson Walton
[2022-07-01] MEDS ORDERED: ePHEDrine 50 MG/5 ML SYRINGE (ANEST) IV ONE (14:00)
[2022-07-01] MEDS ORDERED: KETAMINE 50 MG/ML Syringe (ANEST) IV ONE (14:00)
[2022-07-01] MEDS ORDERED: ceFAZolin 2 GM in DEXTROSE 5% IN WATER 50 ML IV SCH (14:00)
[2022-07-01] MEDS ORDERED: fentaNYL 100 MCG/2 ML VIAL IV ONE (14:00)
[2022-07-01] MEDS ORDERED: TRANEXAMIC ACID 1,000 MG/10 ML VIAL ONE (14:00)
[2022-07-01] MEDS ORDERED: GLYCOPYRROLATE 0.2 MG/ML VIAL IV ONE (14:00)
[2022-07-01] MEDS ORDERED: PHENYLephrine 1 MG/10 ML SYRINGE (ANEST) ONE (14:00)
[2022-07-01] MEDS ORDERED: DEXAMETHASONE 10 MG/ML VIAL ONE (14:00)
[2022-07-01] MEDS ORDERED: ROPIVACAINE HCL/PF 20 ML VIAL IJ ONE (14:00)
[2022-07-01] MEDS ORDERED: ONDANSETRON 4 MG/2 ML VIAL ONE (14:00)
[2022-07-01] MEDS ORDERED: MAGNESIUM SULFATE 2 GM/50 ML BAG IV ONE (14:00)
[2022-07-01] MEDS ORDERED: PROPOFOL 200 MG/20 ML VIAL IV ONE (14:00)
[2022-07-01] MEDS ORDERED: LIDOCAINE HCL/PF 100 MG/5 ML SYRINGE IV ONE (14:00)
[2022-07-01] MEDS ORDERED: MEPERIDINE 25 MG/ML VIAL IV PRN (14:26)
[2022-07-01] MEDS ORDERED: METHOCARBAMOL 1,000 MG/10 ML VIAL IV PRN (14:26)
[2022-07-01] MEDS ORDERED: METOPROLOL TARTRATE 5 MG/5 ML VIAL IV PRN (14:26)
[2022-07-01] MEDS ORDERED: LABETALOL 5 MG/ML ML IV PRN (14:26)
[2022-07-01] MEDS ORDERED: LACTATED RINGERS 250 ML IV PRN (14:26)
[2022-07-01] MEDS ORDERED: HYDROmorphone 0.5 MG/0.5 ML SYRINGE IV PRN (14:26)
[2022-07-01] MEDS ORDERED: ONDANSETRON 4 MG/2 ML VIAL IV PRN ×2 (14:26→15:23)
[2022-07-01] MEDS ORDERED: fentaNYL 100 MCG/2 ML VIAL IV PRN (14:26)
[2022-07-01] MEDS ORDERED: NALOXONE HCL 0.4 MG/ML VIAL IV PRN (14:26)
[2022-07-01] MEDS ORDERED: IPRATROPIUM/ALBUTEROL 3 ML AMPUL.NEB NEB PRN (14:26)
[2022-07-01] MEDS ORDERED: LACTATED RINGERS 1,000 ML IV SCH (14:30)
[2022-07-01] MEDS ORDERED: HYDROcodone/APAP 10/325MG TABLET PO PRN (15:23)
[2022-07-01] MEDS ORDERED: TEMAZEPAM 15 MG CAPSULE PO PRN (15:23)
[2022-07-01] MEDS ORDERED: POLYETHYLENE GLYCOL 3350 17 GM PACKET PO PRN (15:23)
[2022-07-01] MEDS ORDERED: MAGNESIUM HYDROXIDE 30 ML ORAL.SUSP PO PRN (15:23)
[2022-07-01] MEDS ORDERED: TRANEXAMIC ACID 1,000 MG/10 ML VIAL IV ONE ×3 (15:23→15:30)
[2022-07-01] MEDS ORDERED: HYDROmorphone 1 MG/ML SYRINGE IV PRN (15:23)
[2022-07-01] MEDS ORDERED: BISACODYL 10 MG SUPP.RECT PR PRN (15:23)
[2022-07-01] MEDS ORDERED: FLEETS ADULT ENEMA PR PRN (15:23)
[2022-07-01] MEDS ORDERED: ACETAMINOPHEN CODEINE PO PRN (15:25)
[2022-07-01] MEDS ORDERED: VANCOMYCIN 1,000 MG in 0.9 % SODIUM CHLORIDE 250 ML IV SCH (15:30)
[2022-07-01] MEDS ORDERED: SCOPOLAMINE 1 PATCH PATCH TOPICAL PRN (15:30)
--- NOTE | 2022-07-01 16:49 | XRay Report ---
CLINICAL INFORMATION: Post-Op Total Knee COMPARISON: None. FINDINGS: Total knee prostheses is anatomically aligned. No osseous abnormalities. Periarticular soft tissue swelling seen as expected. IMPRESSION: Knee prostheses in anatomic alignment Interpreted and Authenticated by: Vahid Sanchez 07/01/22
[2022-07-01] MEDS: 0.45 % SODIUM CHLORIDE 1,000 ML IV SCH (17:21)
[2022-07-01] MEDS ORDERED: CLINDAMYCIN 600 MG in DEXTROSE 5% IN WATER 50 ML IV SCH (18:00)
[2022-07-01] MEDS ORDERED: CLINDAMYCIN IN 0.9 % SOD CHLOR 600 MG/50 ML BAG IV SCH (18:00)
[2022-07-01] MEDS: ACETAMINOPHEN 325 MG TABLET PO PRN (20:07)
[2022-07-01] MEDS: CLINDAMYCIN IN 0.9 % SOD CHLOR 600 MG/50 ML BAG IV SCH ×2 (20:16→23:57)
[2022-07-01] MEDS ORDERED: CLINDAMYCIN HCL 300 MG PO SCH (21:00)
[2022-07-01] MEDS ORDERED: SENNOSIDES 1 TABLET PO SCH (21:00)
[2022-07-01] MEDS: ASPIRIN 81 MG TAB.CHEW PO SCH (23:54)
[2022-07-01] MEDS: METOPROLOL TARTRATE 25 MG TABLET PO SCH (23:54)
[2022-07-01] MEDS: DOCUSATE SODIUM 100 MG CAPSULE PO SCH (23:55)
[2022-07-01] MEDS: FAMOTIDINE 20 MG TABLET PO SCH (23:55)
[2022-07-01] MEDS: DOXYCYCLINE HYCLATE 100 MG TABLET.ORL PO SCH (23:55)
[2022-07-01] MEDS: 0.9 % SODIUM CHLORIDE 10 ML SYRINGE IV SCH (23:56)
[2022-07-02] MEDS: ACETAMINOPHEN 325 MG TABLET PO PRN (03:36)
[2022-07-02] MEDS: CLINDAMYCIN IN 0.9 % SOD CHLOR 600 MG/50 ML BAG IV SCH ×2 (05:48→13:48)
[2022-07-02] MEDS: 0.45 % SODIUM CHLORIDE 1,000 ML IV SCH ×2 (06:59→14:24)
[2022-07-02] MEDS: 0.9 % SODIUM CHLORIDE 10 ML SYRINGE IV SCH ×2 (07:00→14:36)
--- NOTE | 2022-07-02 07:11 | Orthopedic Progress Note ---
SUBJECTIVE Subjective Patient information: Note initiated : 07/02/22 at 7:09 am Service Date, if different from initiated Date: [] Patient: Elaine Pittman 82 y/o F admitted on 07/01/22 for Right Knee - Removal of Total Knee With Temporary . Chief Complaint: [Pt is stable this morning on post operative day without any significant concerns or complaints. Patients vital signs have remained stable. Patients dressing is dry and is grossly intact from a neurovascular and motor standpoint. Patients 10 point ROS is otherwise negative. ] Constitutional Vitals: Vital Signs Temp Pulse Resp BP Pulse Ox O2 Del Method O2 Flow Rate 97.3 F 103 H 18 127/82 94 6 07/01/22 16:50 07/01/22 16:50 07/01/22 16:50 07/01/22 16:50 07/01/22 16:50 07/01/22 16:05 07/01/22 16:05 Period Temp Pulse Resp BP Sys/Oh Pulse Ox O2 Del Method O2 Flow Rate Last 24 Hr 97 F-98.1 F 79-108 112-148/60-107 93-100 Room Air-Simple Mask 6-6 Intake and Output 07/01/22 07/02/22 07/02/22 19:59 03:59 11:59 Intake Total 5668 109 8901 Output Total 700 Balance 2063 858 9486 Intake & Output: Intake & Output 07/01/22 07/02/22 07/02/22 19:59 03:59 11:59 Intake Total 2092 719 0808 Output Total 700 Balance 6944 949 5842 Intake: IV 50 100 1050 Sodium Chloride 0.45% 1,000 ml 1000 @ 100 mls/hr IV .Q10H [facility] Rx#: [id number] CLINDAMYCIN 600 MG/50 ML-NS 600 100 50 mg In 50 ml @ 100 mls/hr IV Q8H [facility] Rx#:[id number] Ancef 2 gm In Dextrose 5% in 50 Water 50 ml @ 100 mls/hr IV PREOP KOTA Rx#:[id number] IV - Manual Only 1750 Output: Urine Catheter Amount 650 Estimated Blood Loss 50 Other: Urine Appearance Clear Urine Color Yellow Urine Odor Normal Extremities Exam Extremities exam: Present normal capillary refill, normal inspection, Foot pink and warm and neurovascular intact OBJ DATA Labs CBC & Chem 7: 07/02/22 05:22 06/28/22 16:39 Labs: Abnormal Lab Results 07/02/22 05:22 Hct 29.6 L Meds: Medications Acetaminophen (Acetaminophen 325 Mg Tablet) 650 mg PO Q6HP PRN; Protocol PRN Reason: Per Pain Protocol/Fever > 101 Last Admin: 07/02/22 03:36 Dose: 650 mg Hydrocodone Bitart/Acetaminophen (Hydrocodone/Apap 10/325mg Tablet) 1 - 2 tab PO Q4HP PRN; Protocol PRN Reason: Per Pain Protocol Alendronate Sodium (Alendronate Sodium 70 Mg Tablet) 70 mg PO Garay [facility] Ascorbic Acid (Ascorbic Acid 500 Mg Tablet) 500 mg PO QDAY [facility] Aspirin (Aspirin 81 Mg Tab.Chew) 81 mg PO BID [facility] Last Admin: 07/01/22 23:54 Dose: Not Given Bisacodyl (Bisacodyl 10 Mg Supp.Rect) 10 mg MI Q2-3DAYS PRN PRN Reason: Constipation Calcium Carbonate/Glycine (Calcium Carbonate 500 Mg Tab.Chew) 1 mg PO DAILY [facility] Docusate Sodium (Docusate Sodium 100 Mg Capsule) 100 mg PO BID [facility] Last Admin: 07/01/22 23:55 Dose: 100 mg Doxycycline Hyclate (Doxycycline Hyclate 100 Mg Tablet.Orl) 100 mg PO BID [facility] Last Admin: 07/01/22 23:55 Dose: 100 mg Famotidine (Famotidine 20 Mg Tablet) 20 mg PO BID [facility] Last Admin: 07/01/22 23:55 Dose: 20 mg Hydromorphone HCl (Hydromorphone 1 Mg/Ml Syringe) 0.5 - 2 mg IV Q2HP PRN; Protocol PRN Reason: Per Pain Protocol Sodium Chloride (Sodium Chloride 0.45%) 1,000 mls @ 100 mls/hr IV .Q10H [facility] Last Infusion: 07/02/22 06:59 Dose: Infused CLINDAMYCIN IN 0.9 % SOD CHLOR (Clindamycin 600 Mg/50 Ml-Ns) 600 mg in 50 mls @ 100 mls/hr IV Q8H [facility] Last Infusion: 07/02/22 06:20 Dose: Infused Iron Carb/Multivit/Ruffling Hemmer Automatic/Folic Acid (Multivit,Ther Iron,Ca,Fa & Min 1 Tablet) 1 tab PO QAM [facility] Levothyroxine Sodium (Levothyroxine 125 Mcg Tablet) 125 mcg PO QAM [facility] Lisinopril (Lisinopril 20 Mg Tablet) 20 mg PO QAM [facility] Magnesium Hydroxide (Magnesium Hydroxide 30 Ml Oral.Susp) 30 ml PO BIDP PRN PRN Reason: Constipation Metoprolol Tartrate (Metoprolol Tartrate 25 Mg Tablet) 25 mg PO BID [facility] Last Admin: 07/01/22 23:54 Dose: 25 mg Ondansetron HCl (Ondansetron 4 Mg/2 Ml Vial) 4 mg IV Q4HP PRN PRN Reason: Nausea And Vomiting (Cranberry 400 Mg (Capsule)) 1 dose PO BID [facility] Last Admin: 07/01/22 23:55 Dose: Not Given (Focus Factor 1 Tab) 1 dose PO DAILY [facility] Red Yeast Rice 600 (Mg Capsule) 1 dose PO QAM [facility] Polyethylene Glycol (Polyethylene Glycol 3350 17 Gm Packet) 17 gm PO DAILYP PRN PRN Reason: Constipation Senna (Sennosides 1 Tablet) 2 tab PO HS [facility] Last Admin: 07/01/22 23:55 Dose: 2 tab Sodium Biphosphate/Sodium Phosphate (Fleets Adult Enema) 1 dose MI Q3-4DAYS PRN PRN Reason: Constipation Sodium Chloride (0.9 % Sodium Chloride 10 Ml Syringe) 10 ml IV Q8 [facility] Last Admin: 07/02/22 07:00 Dose: 10 ml Temazepam (Temazepam 15 Mg Capsule) 15 mg PO HSP PRN PRN Reason: Insomnia Last Admin: 07/02/22 01:01 Dose: 15 mg Vitamin B Complex (Vitamin B Complex 1 Capsule) 1 cap PO QDAY [facility] A/P Narrative A/P Narrative: The patient has been educated regarding dressing care, , restrictions, and follow up appointments. The patient has had all necessary DME prescribed. The patient has remained relatively stable during their hospital course. Time Spent With Patient Time: Total time spent is greater than 50% in coordination of care (as documented) at patient's floor/unit and/or counseling patient: Total time spent with greater than 50% in coordination of care (as documented) at patient's floor/unit and/or counseling patient:: less than 15 minutes Critical Care Time: No
--- NOTE | 2022-07-02 08:08 | Operative Note ---
DATE OF OPERATION: 07/01/2022 DATE OF PROCEDURE: 07/01/2022 PREOPERATIVE DIAGNOSIS: Right septic total knee arthroplasty. POSTOPERATIVE DIAGNOSIS: Right septic total knee arthroplasty. PROCEDURE: Right total knee arthroplasty revision of all components, first stage with active infection. SURGEON: Dar Finnegan M.D. SUPERVISOR FUR FLOOR WORKER: Bronsno Walton PA-C. The expertise and technical skill of the patient were required throughout the case. The PA assisted with preoperative coordination, intraoperative retraction, wound closure, and dressing and splint application, as well as postoperative documentation and care coordination. ANESTHESIA: General LMA anesthesia. COMPLICATIONS: None. TOURNIQUET TIME: 56 minutes @ 250 mmHg. ESTIMATED BLOOD LOSS: About 100 mL. IMPLANTS: Size 3 tibial baseplate, size 4 femur with a 26 mm constrained liner. Antibiotic cement was used. DESCRIPTION OF PROCEDURE: The patient was brought to the operating room, put to sleep with general LMA anesthesia. Once asleep, the patient had the right leg sterilely prepped and draped in the usual sterile fashion. Timeout was performed, confirming it as the operative site. We then made a midline incision, a midvastus approach performed. This showed active infection. There was no domitila purulence, but there was a general synovitis throughout the knee. We performed a complete synovectomy of the knee as there was a lot of soft tissue. There was infection extending below the tibial baseplate as well as the femoral component proximally. The patella had delaminated and there was infection underneath the patellar component. With this, we thoroughly irrigated the patella and placed a trial patella to protect it as well as removed the femoral component with flexible osteotomes, removed the tibial base with flexible osteotomes. The poly liner was removed by removing the locking pin by cutting a constrained liner. Once this was removed the tibial baseplate was removed with minimal bone loss. Once this was all done, we irrigated thoroughly. The wound was thoroughly debrided and a complete synovectomy of the knee as noted. Once this was accomplished, we then trialed the size 3 tibial baseplate, size 4 femur. We removed any remnants of bone cement. The size 4 femur was chosen as well as a 26 mm poly liner. This started with a 19 mm liner. This does represent some bone loss as well as tightening of the ligaments. We thoroughly irrigated again and then placed the final implants with antibiotic-impregnated cement, both on the tibia as well as on the femoral component. The patella was also cemented into place with a 36 mm round patella. Once this was cemented into place the 26 mm liner was tapped into place with the locking pin. We kept the knee in full extension until completely dry. Once the cement was dry, we thoroughly irrigated once more using 9 liters of irrigation. We then deflated the tourniquet, controlled any bleeding and closed the midvastus approach with #1 Stratafix x3. Skin was closed with Stratafix and malinda. Sterile bandage was applied. The patient tolerated this well without complication. RBH:kh Job ID: [id number] Doc ID: [id number] Dar Finnegan MD
[2022-07-02] MEDS: FAMOTIDINE 20 MG TABLET PO SCH (08:50)
[2022-07-02] MEDS: ASPIRIN 81 MG TAB.CHEW PO SCH (08:50)
[2022-07-02] MEDS: METOPROLOL TARTRATE 25 MG TABLET PO SCH (08:50)
[2022-07-02] MEDS: DOCUSATE SODIUM 100 MG CAPSULE PO SCH (08:50)
[2022-07-02] MEDS: DOXYCYCLINE HYCLATE 100 MG TABLET.ORL PO SCH (08:51)
[2022-07-02] MEDS ORDERED: FOCUS FACTOR PO SCH (09:00)
[2022-07-02] MEDS ORDERED: VITAMIN B COMPLEX 1 CAPSULE PO SCH (09:00)
[2022-07-02] MEDS ORDERED: LISINOPRIL 20 MG TABLET PO SCH (09:00)
[2022-07-02] MEDS ORDERED: LEVOTHYROXINE 125 MCG TABLET PO SCH (09:00)
[2022-07-02] MEDS ORDERED: CALCIUM CARBONATE 500 MG TAB.CHEW PO SCH (09:00)
[2022-07-02] MEDS ORDERED: MULTIVIT,THER IRON,CA,FA & MIN 1 TABLET PO SCH (09:00)
[2022-07-02] MEDS ORDERED: ASCORBIC ACID 500 MG TABLET PO SCH (09:00)
[2022-07-02] MEDS ORDERED: DAPTOmycin 500 MG VIAL IV SCH ×2 (15:45→16:00)
[2022-07-02 16:51] LABS: Creatine Kinase 82 U/L (24-170)
[2022-07-07] MEDS ORDERED: ALENDRONATE SODIUM 70 MG TABLET PO SCH (09:00)
== END 2022-07-02 17:07 | disposition home health service (06) | DRG 467 ==
LOC: MEDSUR 11:27
PROVIDERS: ADMIT Orthopaedic Surgery; ATTEND Orthopaedic Surgery

== ENCOUNTER 2023-02-12 09:37 | Inpatient (IN) ==
[2023-02-12] MEDS ORDERED: 0.9 % SODIUM CHLORIDE 1,000 ML IV ONE (09:46)
[2023-02-12] MEDS ORDERED: LACTATED RINGERS 1,000 ML IV ONE ×3 (09:51→11:13)
[2023-02-12] MEDS ORDERED: ONDANSETRON 4 MG/2 ML VIAL IV ONE (09:51)
[2023-02-12] MEDS ORDERED: ACETAMINOPHEN 325 MG TABLET PO ONE (09:53)
--- NOTE | 2023-02-12 10:15 | XRay Report ---
CLINICAL INFORMATION: Sepsis COMPARISON: 01/17/2022. TECHNIQUE: Portable FINDINGS: Mild cardiomegaly is unchanged. Moderate hiatal hernia is seen in the retrocardiac region as before. The remaining mediastinum and pulmonary vessels are normal. Minor bibasilar atelectasis and fibrosis again noted. No definite infiltrate and no effusion. IMPRESSION: No acute disease. Interpreted and Authenticated by: Vahid Sanchez 02/12/23
[2023-02-12 10:39] LABS: POC Calcium, Ionized 1.22 (1.16-1.32); POC Potassium 3.8 (3.3-5.1)
[2023-02-12 11:16] LABS: Basophils # (Auto) 0.03 K/mcL (0.00-0.30); Basophils % (Auto) 0.2 % (0.0-2.0); Eosinophils # (Auto) 0.01 K/mcL (0.00-0.70); Eosinophils % (Auto) 0.1 % (0.0-7.0); Lymphocytes # (Auto) 0.59 K/mcL (1.50-4.80); Lymphocytes % (Auto) 4.7 % (15.5-49.0); Mean Cell Volume 91.1 fL (80.0-100.0); Mean Corpuscular HGB Conc 31.4 g/dL (31.0-36.0); Mean Platelet Volume 10.1 fL (8.8-12.5); Monocytes # (Auto) 1.07 K/mcL (0.10-0.90); Monocytes % (Auto) 8.5 % (1.0-12.0); Neutrophils % (Auto) 85.8 % (38.0-78.0); Platelet Count 131 K/mcL (140-440); RBC 3.84 M/mcL (3.59-5.38); Red Cell Distribution Width 14.1 % (11.5-14.5); WBC 12.6 K/mcL (4.5-11.0)
[2023-02-12 11:26] LABS: Appearance,Urine CLOUDY (Clear); Bacteria,Urine MANY /hpf (0); Bilirubin,Urine Negative (Negative); Color,Urine AMBER; Culture Indicated,Urine yes; Glucose,Urine (UA) Negative (Negative); Ketones,Urine Negative (Negative); Leukocyte Esterase,Urine 500 /uL (Negative); Mucus,Urine FEW /hpf; Nitrate,Urine Negative (Negative); Protein,Urine 30 mg/dL (Negative); Specific Gravity,Urine 1.014 (1.000-1.035); Urine RBC 1 /hpf (0-3); Urine Squamous Epithelial Cell < 1 /hpf (0-4); Urine WBC 47 /hpf (0-4); Urobilinogen,Urine Negative
[2023-02-12] MEDS ORDERED: cefTRIAXone 1 GM VIAL IV ONE (11:32)
--- NOTE | 2023-02-12 11:39 | Emergency Department Note ---
HPI General Chief complaint: Weakness Stated complaint: Decreased loc, fever, decreased appetite Time Seen by Provider: 02/12/23 09:51 Source: EMS Mode of arrival: EMS Limitations: no limitations History of Present Illness HPI Narrative: Narrative: This is a 82-year-old female who presents to the emergency department with fevers, confusion nausea and vomiting since last night. Patient states she got home from playing cards with a friends and her symptoms started yesterday afternoon. Her was sick a few days ago but quickly cleared viral type symptoms. The patient denies any chest pain or shortness of breath there has been no diarrhea. Related Data Home Medications Medication Instructions Recorded Confirmed cranberry 400 mg capsule 400 mg PO BID 09/11/16 02/12/23 ascorbic acid (vitamin C) 500 mg 500 mg PO QDAY 08/25/17 02/12/23 capsule vitamin B complex (B Complex 1 1 tab PO QDAY 08/25/17 02/12/23 tablet) levothyroxine 125 mcg tablet 125 mcg PO QAM 01/18/21 02/12/23 red yeast rice 600 mg capsule 600 mg PO QAM 01/18/21 02/12/23 Focus Factor 1 tab PO DAILY 06/28/22 02/12/23 acetaminophen 300 mg-codeine 60 mg 1 tab PO Q4HP PRN Pain 06/28/22 02/12/23 tablet alendronate 70 mg tablet 1 tab PO WEEKLY 06/28/22 02/12/23 calcium 1 tab PO DAILY 06/28/22 02/12/23 doxycycline hyclate 100 mg capsule 1 cap PO BID 06/28/22 02/12/23 famotidine 20 mg tablet 20 mg PO BID 06/28/22 02/12/23 lisinopril 20 mg tablet 1 tab PO QAM 06/28/22 02/12/23 multivitamin 1 tab PO QAM 06/28/22 02/12/23 warfarin 2.5 mg tablet See Rx Instructions .Route .COMPLEX 06/28/22 02/12/23 metoprolol tartrate 25 mg tablet 25 mg PO BID 02/12/23 02/12/23 torsemide 10 mg tablet 10 mg PO QDAY 02/12/23 02/12/23 Previous Rx's Medication Instructions Recorded docusate sodium 100 mg capsule 100 mg PO BID #60 caps 07/01/22 Allergies Allergy/AdvReac Type Severity Reaction Status Date / Time vancomycin Allergy Severe Redness of Verified 02/12/23 09:41 Skin apixaban [From Eliquis] Allergy Intermediate Abdominal Verified 02/12/23 09:41 pain dronedarone [From Multaq] Allergy Intermediate Cramps Verified 02/12/23 09:41 morphine Allergy Mild Rash Verified 02/12/23 09:41 Opioids - Morphine Analogues Allergy Mild Rash Verified 02/12/23 09:41 Sulfa (Sulfonamide Allergy Mild Rash Verified 02/12/23 09:41 Antibiotics) alteplase Allergy Unknown Rash Verified 02/12/23 09:41 ciprofloxacin Allergy Unknown Headache Verified 02/12/23 09:41 aspirin AdvReac Mild Gastrointestinal Verified 02/12/23 09:41 Upset Review of Systems ROS ROS Narrative: Narrative: All systems ED: reviewed and negative except as stated. PFSH Narrative Patient History Narrative: Narrative: Medical/Surgical/Family History All Active Problems (Updated 02/13/23 @ 07:11 by Daron Reeves MD) Acute pyelonephritis (Acute) Acute pyelonephritis (Acute) Nausea & vomiting (Acute) Bursitis of hip, right (Acute) Change in mental status (Acute) Injury of knee (Acute) Encounter for post surgical wound check (Acute) Influenza B (Acute) UTI (urinary tract infection) (Acute) MACRINA (acute kidney injury) (Acute) Sepsis (Acute) Trochanteric bursitis of right hip (Acute) Trochanteric bursitis of left hip (Acute) Sprain and strain of left wrist (Acute) Contusion of knee, left (Acute) Bilateral sacroiliitis (Acute) Chronic SI joint pain (Acute) Other low back pain (Chronic) Bursitis of hip (Chronic) Myofascial pain syndrome (Chronic) Sacroiliac joint pain (Chronic) Chronic pain (Chronic) Lumbar facet arthropathy (Chronic) Lumbar degenerative disc disease (Chronic) Lumbar radiculopathy (Chronic) Lumbar spondylosis (Chronic) Degenerative lumbar spinal stenosis (Chronic) Osteopenia (Acute) Seborrheic keratosis (Acute) Nausea (Acute) Abdominal pain, epigastric (Acute) MACRINA (acute kidney injury) (Acute) Subtherapeutic international normalized ratio (INR) (Acute) Viral illness (Acute) Nausea vomiting and diarrhea (Acute) Pharyngitis (Acute) Kidney lesion (Chronic) Obstructive sleep apnea syndrome (Chronic) Varicose veins of lower extremity (Chronic) Osteoporosis (Chronic) Essential hypertension (Chronic) Obesity (Chronic) Hypothyroidism (Chronic) Knee pain (Chronic) Renal mass (Chronic) Thoracic back pain (Chronic) GERD (gastroesophageal reflux disease) (Chronic) Non-rheumatic aortic stenosis (Chronic) Fracture of radius (Chronic) Atrial fibrillation with rapid ventricular response (Chronic) History of MRSA infection (Chronic) Flank pain (Chronic) Renal impairment (Chronic) Stage 3 chronic kidney disease (Chronic) Lumbar spinal stenosis (Chronic) Injury of hand, left (Acute) Left renal mass (Chronic) 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 (Acute) UTI (urinary tract infection) (Acute) Hypokalemia (Acute) Nausea and vomiting (Acute) Atypical chest pain (Acute) Septic arthritis (Acute) Swelling of knee joint, right (Acute) Gastroenteritis (Acute) Abdominal pain (Acute) Anemia (Chronic) Right knee pain (Acute) Mild aortic stenosis (Chronic) Dermatitis (Acute) Methicillin resistant Staphylococcus aureus infection (Acute) Encounter for Health Maintenance Examination in Adult (Chronic) Plantar fasciitis of right foot (Acute) Venous embolism and thrombosis (Acute) Thyroid nodule (Acute) Red blood cell antibody positive (Acute) Paroxysmal atrial fibrillation (Chronic) Osteoporosis screening (Acute) Acquired hypothyroidism (Chronic 11/17/13) Hyperlipidemia (Chronic) Fibrocystic breast disease (Chronic) Dyspepsia (Chronic) Degenerative arthritis (Chronic) Colon polyps (Chronic) Chest pain (Acute) Breast lump (Acute 03/17/13) Back pain (Chronic) Aortic regurgitation (Chronic) Medical History Acquired hypothyroidism (11/17/13) Anticoagulant long-term use (11/09/13) PATIENT ON COUMADIN Aortic regurgitation Echo showing mild aortic regurgitation 03/2011; last visit with Dr. Deluna 11/2011. Repeat Echo 09/2016: mild aortic sclerosis and regurgitation---repeat in 3 years (09/2019) Atrial fibrillation with rapid ventricular response Atypical chest pain Back pain Low back pain Bilateral sacroiliitis Breast lump (03/17/13) 03/17/13 Right breast mammogram--Palpable right breast nodule; 03/17/13 Right breast ultrasound--Negative. 06/02/13 negative right breast biopsy--findings consistent with a lipoma. Bursitis of hip Bursitis of knee Chest pain 05/2013-06/03/13--Hospitalized for chest pain and rapid atrial fibrillation. Echo 06/03/13 revealed mild aortic stenosis while in A-Fib and mild Left ventricular hypertrophy and normal ejection fraction. Treated with IV Cardizem and converted spontaneously; also had negative CT angio. Chronic pain Chronic SI joint pain Colon polyps Colonoscopy 10/2010 showing tubular adenoma. [address] Mojica Degenerative arthritis Multi-joint and low back pain; currently stable. Degenerative lumbar spinal stenosis Dyspepsia Stable on prn Prilosec Essential hypertension Fibrocystic breast disease Hx of previous biopsies; exam stable. New right breast nodule. Flank pain Fracture of radius GERD (gastroesophageal reflux disease) History of MRSA infection Hyperlipidemia Questionable statin intolerance; numbers quite stable, currently taking [place]. Hypokalemia Hypothyroidism Kidney lesion Knee pain Low back pain Lumbar degenerative disc disease Lumbar facet arthropathy Lumbar radiculopathy Lumbar spinal stenosis Lumbar spondylosis Myofascial pain syndrome Nausea and vomiting Non-rheumatic aortic stenosis Obesity Obstructive sleep apnea syndrome Osteopenia Osteoporosis Osteoporosis screening Questionable statin intolerance; numbers quite stable, currently taking Red [place] Rice. Other low back pain Paroxysmal atrial fibrillation Cardiology review including persantine cardiolite essentially normal and echo showing mild aortic regurgitation 03/2011; last visit with Dr. Deluna 11/2011. 06/03/13--Hospitalized for chest pain and rapid atrial fibrillation. Echo 06/03/13 revealed mild aortic stenosis while in A-Fib and mild Left ventricular hypertrophy and normal ejection fraction. Treated with IV Cardizem and converted spontaneously; also had negative CT angio. Pharyngitis Plantar fasciitis of right foot Rash and nonspecific skin eruption Red blood cell antibody positive Positive in 2007. Renal impairment Renal mass Sacroiliac joint pain Seborrheic keratosis Septic arthritis h/o. after knee replacement Stage 3 chronic kidney disease Strain of right knee Swelling of knee joint, right Thoracic back pain Thyroid nodule Partial thyroidectomy for benign nodule 05/2010 and now on thyroid replacement. Urinary tract infection Episode in 2005 UTI (urinary tract infection) Varicose veins of lower extremity Venous embolism and thrombosis Past hx of superficial, single episode. No hx for deep venous thrombosis. Vomiting Surgical History History of arthroscopy of left knee 2008 History of cardiac catheterization History of cholecystectomy 2001 History of colonoscopy 10/29/2010 Tubular adenoma. 5 Year sequencing 05/2017 History of esophagogastroduodenoscopy 07/08/2002-Gastric Polyp with negative biopsy and negative RUMA testing History of hernia surgery History of partial thyroidectomy History of prior ablation treatment 09/2013 ablation for A-fib History of radiofrequency ablation (RFA) for complex left atrial arrhythmia History of right breast biopsy History of thyroidectomy 05/2010 Partial Hx of total knee arthroplasty early 2015, right. Had subsequent bursitis and septic arthritis and revision x 2 thru 2016. 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 Alert. Mild distress HEENT: NCAT PERRL EOMI. No conjunctivitis. Membranes moist. Neck: Supple, trachea midline Cardiovascular: Tachycardic. No murmur. No rubs. No gallops. Respiratory: No respiratory distress. Breath sounds equal. Lungs clear. Gastrointestinal: Soft. Diffuse tenderness to palpation worse in the suprapubic region normal bowel sounds there is no guarding rigidity or other peritoneal signs Musculoskeletal: No pain. No soft tissue swelling. Good ROM. No signs injury Skin: Warm. Dry. No rash Neurologic: Alert and oriented x3 moves all extremities equally and fully, speech is fluent face is symmetric General Limitations: no limitations Course Vital Signs Vital signs: Vital Signs Temperature 102.5 F H 02/12/23 09:38 Pulse Rate 126 H 02/12/23 09:38 Respiratory Rate 20 02/12/23 09:38 Blood Pressure 149/137 02/12/23 09:38 Pulse Oximetry (%) 95 02/12/23 09:38 Oxygen Delivery Method Room Air 02/12/23 09:38 Temperature 98.9 F 02/13/23 07:01 Pulse Rate 117 H 02/12/23 20:13 Respiratory Rate 18 02/13/23 07:01 Blood Pressure 99/56 02/13/23 07:01 Pulse Oximetry (%) 92 02/13/23 07:01 Oxygen Delivery Method Room Air 02/13/23 07:01 Oxygen Flow Rate (L/min) 2 02/13/23 05:00 [facility] MDM Narrative Medical decision making narrative: Narrative: Patient presents with nausea vomiting fevers confusion. Differential includes was not limited to UTI, pneumonia, viral illness, diverticulitis, gastr oenteritis. Patient is tachycardic and febrile upon arrival she has normal blood pressures sepsis work-up was initiated. Blood cultures were drawn patient was given 2 L of intravenous fluids she is also given 975 mg of Tylenol. Patient's flu testing is positive for influenza B negative for COVID. Does have a slight leukocytosis and white blood cells in her urine along with many bacteria. Review of prior culture shows pansensitive E. coli. Patient is given 1 g of ceftriaxone. Patient is having improvement in her symptoms her heart rate is downtrending. Patient's chemistry does show acute kidney injury with a creatinine of 3.0. Patient's most recent creatinine that I see was in June 2022 was 0.9. Patient was treated with Tamiflu based on renal dose. Patient will be admitted to the hospitalist for acute kidney injury influenza and urinary tract infection. Lab Data 02/13/23 05:35 02/13/23 05:34 Labs: Lab Results 02/12/23 02/12/23 02/12/23 Range/Units 10:35 10:36 10:36 WBC (4.5-11.0) K/mcL RBC (3.59-5.38) M/mcL Hgb (11.2-15.7) g/dL Hct (34.1-44.9) % POC Hct (36-48) MCV (80.0-100.0) fL MCH (26.0-34.0) pg MCHC (31.0-36.0) g/dL RDW (11.5-14.5) % Plt Count (140-440) K/mcL MPV (8.8-12.5) fL Immature Gran % (Auto) (0.0-0.5) % Neut % (Auto) (38.0-78.0) % Lymph % (Auto) (15.5-49.0) % [place] % (Auto) (1.0-12.0) % Eos % (Auto) (0.0-7.0) % Baso % (Auto) (0.0-2.0) % Lymph # (Auto) (1.50-4.80) K/mcL [place] # (Auto) (0.10-0.90) K/mcL Eos # (Auto) (0.00-0.70) K/mcL Baso # (Auto) (0.00-0.30) K/mcL Immature Gran # (0.00-0.05) K/mcl Absolute Neutrophils (1.80-8.00) K/mcL PT (11.9-14.5) sec INR (0.9-1.1) POC VBG pH 7.34 (7.32-7.42) POC VBG pCO2 at Temp 34.4 L (41-51) POC VBG pO2 56 H (25-40) POC VBG HCO3 18.7 L (24-28) POC VBG Total CO2 20.0 L (25-29) POC Venous O2 Sat 87.0 H (40-70) POC VBG Base Excess -7.0 L (-2-2) VBG Lactic Acid 0.8 (0.5-2) POC Sodium (133-145) Sodium (133-145) mmol/L POC Potassium (3.3-5.1) Potassium (3.3-5.1) mmol/L POC Chloride (96-108) Chloride (96-108) mmol/L Carbon Dioxide (22-30) mmol/L POC Total CO2 (22-30) Anion Gap (8.0-16.0) POC Anion Gap (8.0-16.0) POC BUN (6-20) BUN (8-23) mg/dL Creatinine (0.6-1.1) mg/dL POC Creatinine (0.6-1.2) GFR Calculation Glucose (70-105) mg/dL POC Glucose (70-105) Calcium (8.6-10.4) mg/dL POC WB Ioniz Calcium (1.16-1.32) Phosphorus (2.5-4.5) mg/dL Total Bilirubin (0.1-1.0) mg/dL Direct Bilirubin (<0.3) mg/dL AST (<32) U/L ALT (<40) U/L Alkaline Phosphatase (39-117) U/L Total Protein (5.9-8.4) gm/dL Albumin (3.2-5.2) gm/dL Globulin (2.2-3.7) gm/dL Lipase (7-60) U/L Procalcitonin 55.35 H (<0.10) ng/mL Urine Color [place] Urine Appearance Cloudy A (Clear) Urine pH 5.0 (5.0-9.0) Ur Specific [place] 1.014 (1.000-1.035) Urine Protein 30 A (Negative) mg/dL Urine Glucose (UA) Negative (Negative) mg/dL Urine Ketones Negative (Negative) mg/dL Urine Occult Blood 0.20 (Negative) mg/dL Urine Nitrate Negative (Negative) Urine Bilirubin Negative (Negative) mg/dL Urine Urobilinogen Negative mg/dL Ur Leukocyte Esterase 500 A (Negative) /uL Urine RBC 1 (0-3) /hpf Urine WBC 47 H (0-4) /hpf Ur Squamous Epith Cells < 1 (0-4) /hpf Urine Bacteria Many A (0) /hpf Urine Mucus Few A (None) /hpf Ur Culture Indicated? yes 02/12/23 02/12/23 02/12/23 Range/Units 10:36 10:36 10:36 WBC (4.5-11.0) K/mcL RBC (3.59-5.38) M/mcL Hgb (11.2-15.7) g/dL Hct (34.1-44.9) % POC Hct 31.0 L (36-48) MCV (80.0-100.0) fL MCH (26.0-34.0) pg MCHC (31.0-36.0) g/dL RDW (11.5-14.5) % Plt Count (140-440) K/mcL MPV (8.8-12.5) fL Immature Gran % (Auto) (0.0-0.5) % Neut % (Auto) (38.0-78.0) % Lymph % (Auto) (15.5-49.0) % [place] % (Auto) (1.0-12.0) % Eos % (Auto) (0.0-7.0) % Baso % (Auto) (0.0-2.0) % Lymph # (Auto) (1.50-4.80) K/mcL [place] # (Auto) (0.10-0.90) K/mcL Eos # (Auto) (0.00-0.70) K/mcL Baso # (Auto) (0.00-0.30) K/mcL Immature Gran # (0.00-0.05) K/mcl Absolute Neutrophils (1.80-8.00) K/mcL PT 30.2 H (11.9-14.5) sec INR 2.8 H (0.9-1.1) POC VBG pH (7.32-7.42) POC VBG pCO2 at Temp (41-51) POC VBG pO2 (25-40) POC VBG HCO3 (24-28) POC VBG Total CO2 (25-29) POC Venous O2 Sat (40-70) POC VBG Base Excess (-2-2) VBG Lactic Acid (0.5-2) POC Sodium 137 (133-145) Sodium 133 (133-145) mmol/L POC Potassium 3.8 (3.3-5.1) Potassium 3.8 (3.3-5.1) mmol/L POC Chloride 104 (96-108) Chloride 102 (96-108) mmol/L Carbon Dioxide 18 L (22-30) mmol/L POC Total CO2 19.0 L (22-30) Anion Gap 13.0 (8.0-16.0) POC Anion Gap 19.0 H (8.0-16.0) POC BUN 47 H (6-20) BUN 52 H (8-23) mg/dL Creatinine 2.2 H (0.6-1.1) mg/dL POC Creatinine 3.0 H (0.6-1.2) GFR Calculation 20 Glucose 117 H (70-105) mg/dL POC Glucose 126 H (70-105) Calcium 8.8 (8.6-10.4) mg/dL POC WB Ioniz Calcium 1.22 (1.16-1.32) Phosphorus 2.7 (2.5-4.5) mg/dL Total Bilirubin (0.1-1.0) mg/dL Direct Bilirubin (<0.3) mg/dL AST (<32) U/L ALT (<40) U/L Alkaline Phosphatase (39-117) U/L Total Protein (5.9-8.4) gm/dL Albumin 2.8 L (3.2-5.2) gm/dL Globulin (2.2-3.7) gm/dL Lipase (7-60) U/L Procalcitonin (<0.10) ng/mL Urine Color Urine Appearance (Clear) Urine pH (5.0-9.0) Ur Specific [place] (1.000-1.035) Urine Protein (Negative) mg/dL Urine Glucose (UA) (Negative) mg/dL Urine Ketones (Negative) mg/dL Urine Occult Blood (Negative) mg/dL Urine Nitrate (Negative) Urine Bilirubin (Negative) mg/dL Urine Urobilinogen mg/dL Ur Leukocyte Esterase (Negative) /uL Urine RBC (0-3) /hpf Urine WBC (0-4) /hpf Ur Squamous Epith Cells (0-4) /hpf Urine Bacteria (0) /hpf Urine Mucus (None) /hpf Ur Culture Indicated? 02/12/23 02/12/23 Range/Units 10:37 10:37 WBC 12.6 H (4.5-11.0) K/mcL RBC 3.84 (3.59-5.38) M/mcL Hgb 11.0 L (11.2-15.7) g/dL Hct 35.0 (34.1-44.9) % POC Hct (36-48) MCV 91.1 (80.0-100.0) fL MCH 28.6 (26.0-34.0) pg MCHC 31.4 (31.0-36.0) g/dL RDW 14.1 (11.5-14.5) % Plt Count 131 L (140-440) K/mcL MPV 10.1 (8.8-12.5) fL Immature Gran % (Auto) 0.7 H (0.0-0.5) % Neut % (Auto) 85.8 H (38.0-78.0) % Lymph % (Auto) 4.7 L (15.5-49.0) % [place] % (Auto) 8.5 (1.0-12.0) % Eos % (Auto) 0.1 (0.0-7.0) % Baso % (Auto) 0.2 (0.0-2.0) % Lymph # (Auto) 0.59 L (1.50-4.80) K/mcL [place] # (Auto) 1.07 H (0.10-0.90) K/mcL Eos # (Auto) 0.01 (0.00-0.70) K/mcL Baso # (Auto) 0.03 (0.00-0.30) K/mcL Immature Gran # 0.09 H (0.00-0.05) K/mcl Absolute Neutrophils 10.81 H (1.80-8.00) K/mcL PT (11.9-14.5) sec INR (0.9-1.1) POC VBG pH (7.32-7.42) POC VBG pCO2 at Temp (41-51) POC VBG pO2 (25-40) POC VBG HCO3 (24-28) POC VBG Total CO2 (25-29) POC Venous O2 Sat (40-70) POC VBG Base Excess (-2-2) VBG Lactic Acid (0.5-2) POC Sodium (133-145) Sodium (133-145) mmol/L POC Potassium (3.3-5.1) Potassium (3.3-5.1) mmol/L POC Chloride (96-108) Chloride (96-108) mmol/L Carbon Dioxide (22-30) mmol/L POC Total CO2 (22-30) Anion Gap (8.0-16.0) POC Anion Gap (8.0-16.0) POC BUN (6-20) BUN (8-23) mg/dL Creatinine (0.6-1.1) mg/dL POC Creatinine (0.6-1.2) GFR Calculation Glucose (70-105) mg/dL POC Glucose (70-105) Calcium (8.6-10.4) mg/dL POC WB Ioniz Calcium (1.16-1.32) Phosphorus (2.5-4.5) mg/dL Total Bilirubin 0.8 (0.1-1.0) mg/dL Direct Bilirubin 0.4 H (<0.3) mg/dL AST 27 (<32) U/L ALT 14 (<40) U/L Alkaline Phosphatase 105 (39-117) U/L Total Protein 6.4 (5.9-8.4) gm/dL Albumin 3.0 L (3.2-5.2) gm/dL Globulin 3.4 (2.2-3.7) gm/dL Lipase 13 (7-60) U/L Procalcitonin (<0.10) ng/mL Urine Color Urine Appearance (Clear) Urine pH (5.0-9.0) Ur Specific [place] (1.000-1.035) Urine Protein (Negative) mg/dL Urine Glucose (UA) (Negative) mg/dL Urine Ketones (Negative) mg/dL Urine Occult Blood (Negative) mg/dL Urine Nitrate (Negative) Urine Bilirubin (Negative) mg/dL Urine Urobilinogen mg/dL Ur Leukocyte Esterase (Negative) /uL Urine RBC (0-3) /hpf Urine WBC (0-4) /hpf Ur Squamous Epith Cells (0-4) /hpf Urine Bacteria (0) /hpf Urine Mucus (None) /hpf Ur Culture Indicated? EKG Data EKG #1: EKG attestation: Yes I reviewed and interpreted this EKG., Yes There are no EKG findings of acute coronary syndrome and Yes This EKG will be read by passport support manager EKG results narrative: Sinus tachycardia with a rate of 133 Discharge Plan Patient/Caregiver Discharge Instructions Pt seen by MAINTENANCE MECHANIC ENGINE/PA only: No Clinical Impression: Influenza B, UTI (urinary tract infection), MACRINA (acute kidney injury), Sepsis Patient Disposition: Xfer As Inpt ([facility]) Condition: Fair Discharge Date/Time: 02/12/23 14:20
[2023-02-12 11:54] LABS: Bilirubin,Direct 0.4 mg/dL (<0.3); Bilirubin,Total 0.8 mg/dL (0.1-1.0); Globulin 3.4 gm/dL (2.2-3.7)
[2023-02-12] MEDS ORDERED: OSELTAMIVIR PHOSPHATE 30 MG CAPSULE PO STA (12:45)
--- NOTE | 2023-02-12 13:03 | Internal Med History&Physical ---
HPI History of Present Illness Patient information: Note initiated : 02/12/23 at 12:57 pm Service Date, if different from initiated Date: [] Patient: Elaine Pittman a 82 y/o F admitted on . Chief Complaint: [] History of present illness: Ms. Pittman is a 82 year old F presents to ED with generalized weakness, malaise, frontal headache with sinus congestion for oral intake, chills although denies fever. Nausea with an episode of vomiting last night. She also complains of urinary urgency. Denies cough shortness of breath or chest pain. No diarrhea. Symptoms have been going on for about 3 days. Patient states her was ill prior to her with the flu and that she started feeling ill. Today her weakness and lethargy continued to become worse where she could barely stay awake. In the ED she was evaluated found of a fever of 102. She was tachycardic in the 120s. Blood pressure 94/45. Lactate was fine but procalcitonin is quite elevated 55. Flu B screen was positive. She had a leukocytosis 12. And a creatinine of 3.0 on a [id number] with a last normal creatinine in last June. Chest x-ray unremarkable. Patient given IV fluids and antibiotics started in ED. Also Tamiflu given in ED. Review of Systems: Pertinent positives as above. Denies chest or abdominal pain/cough/dyspnea/diarrhea. Remaining 10 point review of system reviewed negative PHYSICAL EXAM General: Awake, No acute Distress, obese Eyes/N/T: EOMI, no scleral icterus, PERRL, dry MM Head/Neck: neck supple, full ROM, normocephalic atraumatic CV: Mildly tacky but regular, No murmurs, normal s1/s2 Pulm: Clear b/l, no wheezing/rhonchi/rales, no respiratory distress Abd: soft, nontender, +BS x4 Ext: no clubbing/cyanosis/edema, nontender Neuro: Lethargic , CN 2-12 grossly intact, no focal deficits, moves all extremities, , sensations intact b/l upper/lower Psychiatric: Skin: warm/dry, normal color PFSH PFSH All Active Problems (Updated 07/07/22 @ 16:29 by Aden Wilburn DO) Acute pyelonephritis (Acute) Acute pyelonephritis (Acute) Nausea & vomiting (Acute) Bursitis of hip, right (Acute) Change in mental status (Acute) Injury of knee (Acute) Encounter for post surgical wound check (Acute) Trochanteric bursitis of right hip (Acute) Trochanteric bursitis of left hip (Acute) Sprain and strain of left wrist (Acute) Contusion of knee, left (Acute) Bilateral sacroiliitis (Acute) Chronic SI joint pain (Acute) Other low back pain (Chronic) Bursitis of hip (Chronic) Myofascial pain syndrome (Chronic) Sacroiliac joint pain (Chronic) Chronic pain (Chronic) Lumbar facet arthropathy (Chronic) Lumbar degenerative disc disease (Chronic) Lumbar radiculopathy (Chronic) Lumbar spondylosis (Chronic) Degenerative lumbar spinal stenosis (Chronic) Osteopenia (Acute) Seborrheic keratosis (Acute) Nausea (Acute) Abdominal pain, epigastric (Acute) MACRINA (acute kidney injury) (Acute) Subtherapeutic international normalized ratio (INR) (Acute) Viral illness (Acute) Nausea vomiting and diarrhea (Acute) Pharyngitis (Acute) Kidney lesion (Chronic) Obstructive sleep apnea syndrome (Chronic) Varicose veins of lower extremity (Chronic) Osteoporosis (Chronic) Essential hypertension (Chronic) Obesity (Chronic) Hypothyroidism (Chronic) Knee pain (Chronic) Renal mass (Chronic) Thoracic back pain (Chronic) GERD (gastroesophageal reflux disease) (Chronic) Non-rheumatic aortic stenosis (Chronic) Fracture of radius (Chronic) Atrial fibrillation with rapid ventricular response (Chronic) History of MRSA infection (Chronic) Flank pain (Chronic) Renal impairment (Chronic) Stage 3 chronic kidney disease (Chronic) Lumbar spinal stenosis (Chronic) Injury of hand, left (Acute) Left renal mass (Chronic) 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 (Acute) UTI (urinary tract infection) (Acute) Hypokalemia (Acute) Nausea and vomiting (Acute) Atypical chest pain (Acute) Septic arthritis (Acute) Swelling of knee joint, right (Acute) Gastroenteritis (Acute) Abdominal pain (Acute) Anemia (Chronic) Right knee pain (Acute) Mild aortic stenosis (Chronic) Dermatitis (Acute) Methicillin resistant Staphylococcus aureus infection (Acute) Encounter for Health Maintenance Examination in Adult (Chronic) Plantar fasciitis of right foot (Acute) Venous embolism and thrombosis (Acute) Thyroid nodule (Acute) Red blood cell antibody positive (Acute) Paroxysmal atrial fibrillation (Chronic) Osteoporosis screening (Acute) Acquired hypothyroidism (Chronic 04/02/14) Hyperlipidemia (Chronic) Fibrocystic breast disease (Chronic) Dyspepsia (Chronic) Degenerative arthritis (Chronic) Colon polyps (Chronic) Chest pain (Acute) Breast lump (Acute 03/17/13) Back pain (Chronic) Aortic regurgitation (Chronic) Medical History Acquired hypothyroidism (11/17/13) Anticoagulant long-term use (11/09/13) PATIENT ON COUMADIN Aortic regurgitation Echo showing mild aortic regurgitation 03/2011; last visit with Dr. Deluna 11/2011. Repeat Echo 09/2016: mild aortic sclerosis and regurgitation---repeat in 3 years (09/2019) Atrial fibrillation with rapid ventricular response Atypical chest pain Back pain Low back pain Bilateral sacroiliitis Breast lump (03/17/13) 03/17/13 Right breast mammogram--Palpable right breast nodule; 03/17/13 Right breast ultrasound--Negative. 06/02/13 negative right breast biopsy--findings consistent with a lipoma. Bursitis of hip Bursitis of knee Chest pain 05/2013-06/03/13--Hospitalized for chest pain and rapid atrial fibrillation. Echo 06/03/13 revealed mild aortic stenosis while in A-Fib and mild Left ventricular hypertrophy and normal ejection fraction. Treated with IV Cardizem and converted spontaneously; also had negative CT angio. Chronic pain Chronic SI joint pain Colon polyps Colonoscopy 10/2010 showing tubular adenoma. [address] Mojica Degenerative arthritis Multi-joint and low back pain; currently stable. Degenerative lumbar spinal stenosis Dyspepsia Stable on prn Prilosec Essential hypertension Fibrocystic breast disease Hx of previous biopsies; exam stable. New right breast nodule. Flank pain Fracture of radius GERD (gastroesophageal reflux disease) History of MRSA infection Hyperlipidemia Questionable statin intolerance; numbers quite stable, currently taking Red Yeast Rice. Hypokalemia Hypothyroidism Kidney lesion Knee pain Low back pain Lumbar degenerative disc disease Lumbar facet arthropathy Lumbar radiculopathy Lumbar spinal stenosis Lumbar spondylosis Myofascial pain syndrome Nausea and vomiting Non-rheumatic aortic stenosis Obesity Obstructive sleep apnea syndrome Osteopenia Osteoporosis Osteoporosis screening Questionable statin intolerance; numbers quite stable, currently taking Red Yeast Rice. Other low back pain Paroxysmal atrial fibrillation Cardiology review including persantine cardiolite essentially normal and echo showing mild aortic regurgitation 03/2011; last visit with Dr. Deluna 11/2011. 06/03/13--Hospitalized for chest pain and rapid atrial fibrillation. Echo 06/03/13 revealed mild aortic stenosis while in A-Fib and mild Left ventricular hypertrophy and normal ejection fraction. Treated with IV Cardizem and converted spontaneously; also had negative CT angio. Pharyngitis Plantar fasciitis of right foot Rash and nonspecific skin eruption Red blood cell antibody positive Positive in 2007. Renal impairment Renal mass Sacroiliac joint pain Seborrheic keratosis Septic arthritis h/o. after knee replacement Stage 3 chronic kidney disease Strain of right knee Swelling of knee joint, right Thoracic back pain Thyroid nodule Partial thyroidectomy for benign nodule 05/2010 and now on thyroid replacement. Urinary tract infection Episode in 2005 UTI (urinary tract infection) Varicose veins of lower extremity Venous embolism and thrombosis Past hx of superficial, single episode. No hx for deep venous thrombosis. Vomiting Surgical History History of arthroscopy of left knee 2008 History of cardiac catheterization History of cholecystectomy 2001 History of colonoscopy 10/29/2010 Tubular adenoma. 5 Year sequencing 05/2017 History of esophagogastroduodenoscopy 07/08/2002-Gastric Polyp with negative biopsy and negative RUMA testing History of hernia surgery History of partial thyroidectomy History of prior ablation treatment 09/2013 ablation for A-fib History of radiofrequency ablation (RFA) for complex left atrial arrhythmia History of right breast biopsy History of thyroidectomy 05/2010 Partial Hx of total knee arthroplasty early 2016, right. Had subsequent bursitis and septic arthritis and revision x 2 thru 2017. 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 Family History Brother Acute myocardial infarction Heart disease Mother , age 79 Cancer Acute myocardial infarction Pulmonary embolism Heart disease Father Pulmonary embolism Heart disease Sister Arthritis Social History (Updated 11/08/21 @ 09:22 by Chata Simon) household members: spouse housing: house lives independently: Yes marital status: education level: high school occupational status: retired occupation: [employer] sexually active: No physical activity: walking smoking status: Never smoker alcohol intake frequency: does not drink counseling given: No substance use type: does not use firearms in home: No additional history: Has 3 children MEDS/ALLERGIES Home Medications and Allergies Home Medications Medication Instructions Recorded Confirmed Type cranberry 400 mg capsule 400 mg PO BID 09/11/16 08/23/22 History ascorbic acid (vitamin C) 500 mg 500 mg PO QDAY 08/25/17 08/23/22 History capsule vitamin B complex (B Complex 1 1 tab PO QDAY 08/25/17 08/23/22 History tablet) levothyroxine 125 mcg tablet 125 mcg PO QAM 01/18/21 08/23/22 History red yeast rice 600 mg capsule 600 mg PO QAM 01/18/21 08/23/22 History Focus Factor 1 tab PO DAILY 06/28/22 08/23/22 History acetaminophen 300 mg-codeine 60 mg 1 tab PO Q4HP PRN Pain 06/28/22 08/23/22 History tablet alendronate 70 mg tablet 1 tab PO WEEKLY 06/28/22 08/23/22 History calcium 1 tab PO DAILY 06/28/22 08/23/22 History clindamycin HCl 300 mg capsule 600 mg PO BID 06/28/22 08/23/22 History doxycycline hyclate 100 mg capsule 1 cap PO BID 06/28/22 08/23/22 History famotidine 20 mg tablet 20 mg PO BID 06/28/22 08/23/22 History lisinopril 20 mg tablet 1 tab PO QAM 06/28/22 08/23/22 History multivitamin 1 tab PO QAM 06/28/22 08/23/22 History warfarin 2.5 mg tablet 1.25 mg PO DAILY 06/28/22 08/23/22 History docusate sodium 100 mg capsule 100 mg PO BID #60 caps 07/01/22 08/23/22 Rx oxycodone 5 mg capsule 5 mg PO Q4H PRN pain #60 caps 07/01/22 08/23/22 Rx Allergies Allergy/AdvReac Type Severity Reaction Status Date / Time vancomycin Allergy Severe Redness of Verified 02/12/23 09:41 Skin apixaban [From Eliquis] Allergy Intermediate Abdominal Verified 02/12/23 09:41 pain dronedarone [From Multaq] Allergy Intermediate Cramps Verified 02/12/23 09:41 morphine Allergy Mild Rash Verified 02/12/23 09:41 Opioids - Morphine Analogues Allergy Mild Rash Verified 02/12/23 09:41 Sulfa (Sulfonamide Allergy Mild Rash Verified 02/12/23 09:41 Antibiotics) alteplase Allergy Unknown Rash Verified 02/12/23 09:41 ciprofloxacin Allergy Unknown Headache Verified 02/12/23 09:41 aspirin AdvReac Mild Gastrointestinal Verified 02/12/23 09:41 Upset EXAM Constitutional Vitals: Temp Pulse Resp BP Pulse Ox O2 Del Method O2 Flow Rate 98.4 F 104 H 15 94/45 94 Nasal Cannula 2 02/12/23 11:26 02/12/23 12:33 02/12/23 12:33 02/12/23 12:02 02/12/23 12:33 02/12/23 12:02 02/12/23 12:02 DATA Data Completed and Pending Labs: Labs from last 24 hours 02/12/23 02/12/23 02/12/23 10:37 10:37 10:36 WBC 12.6 H RBC 3.84 Hgb 11.0 L Hct 35.0 POC Hct MCV 91.1 MCH 28.6 MCHC 31.4 RDW 14.1 Plt Count 131 L MPV 10.1 Immature Gran % (Auto) 0.7 H Neut % (Auto) 85.8 H Lymph % (Auto) 4.7 L Elbert % (Auto) 8.5 Eos % (Auto) 0.1 Baso % (Auto) 0.2 Lymph # (Auto) 0.59 L Elbert # (Auto) 1.07 H Eos # (Auto) 0.01 Baso # (Auto) 0.03 Immature Gran # 0.09 H Absolute Neutrophils 10.81 H PT INR POC VBG pH POC VBG pCO2 at Temp POC VBG pO2 POC VBG HCO3 POC VBG Total CO2 POC Venous O2 Sat POC VBG Base Excess VBG Lactic Acid POC Sodium Sodium Pending POC Potassium Potassium Pending POC Chloride Chloride Pending Carbon Dioxide Pending POC Total CO2 Anion Gap Pending POC Anion Gap POC BUN BUN Pending Creatinine Pending POC Creatinine GFR Calculation Pending Glucose Pending POC Glucose Calcium Pending POC WB Ioniz Calcium Phosphorus Pending Total Bilirubin 0.8 Direct Bilirubin 0.4 H AST 27 ALT 14 Alkaline Phosphatase 105 Total Protein 6.4 Albumin 3.0 L Pending Globulin 3.4 Lipase 13 Procalcitonin Urine Color Urine Appearance Urine pH Ur Specific [place] Urine Protein Urine Glucose (UA) Urine Ketones Urine Occult Blood Urine Nitrate Urine Bilirubin Urine Urobilinogen Ur Leukocyte Esterase Urine RBC Urine WBC Ur Squamous Epith Cells Urine Bacteria Urine Mucus Ur Culture Indicated? 02/12/23 02/12/23 02/12/23 10:36 10:36 10:36 WBC RBC Hgb Hct POC Hct 31.0 L MCV MCH MCHC RDW Plt Count MPV Immature Gran % (Auto) Neut % (Auto) Lymph % (Auto) Elbert % (Auto) Eos % (Auto) Baso % (Auto) Lymph # (Auto) Elbert # (Auto) Eos # (Auto) Baso # (Auto) Immature Gran # Absolute Neutrophils PT Pending INR Pending POC VBG pH POC VBG pCO2 at Temp POC VBG pO2 POC VBG HCO3 POC VBG Total CO2 POC Venous O2 Sat POC VBG Base Excess VBG Lactic Acid POC Sodium 137 Sodium POC Potassium 3.8 Potassium POC Chloride 104 Chloride Carbon Dioxide POC Total CO2 19.0 L Anion Gap POC Anion Gap 19.0 H POC BUN 47 H BUN Creatinine POC Creatinine 3.0 H GFR Calculation Glucose POC Glucose 126 H Calcium POC WB Ioniz Calcium 1.22 Phosphorus Total Bilirubin Direct Bilirubin AST ALT Alkaline Phosphatase Total Protein Albumin Globulin Lipase Procalcitonin Urine Color [place] Urine Appearance Cloudy A Urine pH 5.0 Ur Specific [place] 1.014 Urine Protein 30 A Urine Glucose (UA) Negative Urine Ketones Negative Urine Occult Blood 0.20 Urine Nitrate Negative Urine Bilirubin Negative Urine Urobilinogen Negative Ur Leukocyte Esterase 500 A Urine RBC 1 Urine WBC 47 H Ur Squamous Epith Cells < 1 Urine Bacteria Many A Urine Mucus Few A Ur Culture Indicated? yes 02/12/23 02/12/23 10:36 10:35 WBC RBC Hgb Hct POC Hct MCV MCH MCHC RDW Plt Count MPV Immature Gran % (Auto) Neut % (Auto) Lymph % (Auto) Elbert % (Auto) Eos % (Auto) Baso % (Auto) Lymph # (Auto) Elbert # (Auto) Eos # (Auto) Baso # (Auto) Immature Gran # Absolute Neutrophils PT INR POC VBG pH 7.34 POC VBG pCO2 at Temp 34.4 L POC VBG pO2 56 H POC VBG HCO3 18.7 L POC VBG Total CO2 20.0 L POC Venous O2 Sat 87.0 H POC VBG Base Excess -7.0 L VBG Lactic Acid 0.8 POC Sodium Sodium POC Potassium Potassium POC Chloride Chloride Carbon Dioxide POC Total CO2 Anion Gap POC Anion Gap POC BUN BUN Creatinine POC Creatinine GFR Calculation Glucose POC Glucose Calcium POC WB Ioniz Calcium Phosphorus Total Bilirubin Direct Bilirubin AST ALT Alkaline Phosphatase Total Protein Albumin Globulin Lipase Procalcitonin 55.35 H Urine Color Urine Appearance Urine pH Ur Specific [place] Urine Protein Urine Glucose (UA) Urine Ketones Urine Occult Blood Urine Nitrate Urine Bilirubin Urine Urobilinogen Ur Leukocyte Esterase Urine RBC Urine WBC Ur Squamous Epith Cells Urine Bacteria Urine Mucus Ur Culture Indicated? A/P Narrative A/P Narrative: A: *Flu B: *UTI: *Sepsis: -elevated PCT *MACRINA on CKD III: *Volume depletion: *Metabolic Acidosis: 2/2 above *Encephalopathy (lethargy/mild confusion): *PAF: on warfarin *Chronic pain: Follows with pain clinic *HTN: *Hypothyroidism: Continue Synthroid *GERD: *Obesity: BMI 35, lifestyle modifications P: -Rocephin, pending UC/BC -Tamiflu renally dosed -IVF -Monitor renal function/UOP -Monitor replace electrolytes -quad pcr pending -f/u PCT - -Hold ACEI for low blood pressure -Home medication reconciliation -PT/OT -ppx: Warfarin per pharmacy / home H2 Time Spent With Patient Time: Total time spent is greater than 50% in coordination of care (as documented) at patient's floor/unit and/or counseling patient: Initial: Total time with patient: 75 - 90 minutes
[2023-02-12 13:32] LABS: INR 2.8 (0.9-1.1); Prothrombin Time 30.2 sec (11.9-14.5)
[2023-02-12 13:53] LABS: Albumin 2.8 gm/dL (3.2-5.2); Blood Urea Nitrogen 52 mg/dL (8-23); Calcium 8.8 mg/dL (8.6-10.4); Carbon Dioxide 18 mmol/L (22-30); Chloride 102 mmol/L (96-108); Glomerular Filtration Rate 20; Glucose 117 mg/dL (70-105); Phosphorous 2.7 mg/dL (2.5-4.5)
[2023-02-12] MEDS ORDERED: POTASSIUM CHLORIDE 40 MEQ in DEXTROSE 5% IN WATER 500 ML IV PRN (14:30)
[2023-02-12] MEDS ORDERED: MAGNESIUM SULFATE 2 GM/50 ML BAG IV PRN (14:30)
[2023-02-12] MEDS ORDERED: IPRATROPIUM/ALBUTEROL 3 ML AMPUL.NEB NEB PRN (14:30)
[2023-02-12] MEDS ORDERED: cefTRIAXone 1 GM in DEXTROSE 5% IN WATER 50 ML IV SCH (14:30)
[2023-02-12] MEDS ORDERED: POTASSIUM CHLORIDE 20 MEQ TABLET PO PRN ×2 (14:30)
[2023-02-12] MEDS ORDERED: SENNOSIDES 1 TABLET PO PRN (14:30)
[2023-02-12] MEDS ORDERED: WARFARIN 1 MG TABLET PO SCH (15:00)
[2023-02-12] MEDS: 0.9 % SODIUM CHLORIDE 10 ML SYRINGE IV SCH ×2 (15:06→20:35)
[2023-02-12] MEDS: 0.9 % SODIUM CHLORIDE 1,000 ML IV SCH (15:06)
[2023-02-12] MEDS ORDERED: METOPROLOL TARTRATE 5 MG/5 ML VIAL IV PRN (17:52)
--- NOTE | 2023-02-12 18:13 | Cat Scan Report ---
CLINICAL INFORMATION: Mental status change left facial droop COMPARISON: 02/06/2022 TECHNIQUE: 2.5 mm helical slices were obtained in the skull base to vertex. Following reconstruction, axial reformatted images were reviewed at bone and parenchymal windows. The exam was performed using radiation dose optimization techniques including, but not limited to, automated exposure control, adjustment of the mA and/or kV according to patient size and use of iterative reconstruction technique. FINDINGS: The ventricles, sulci, fissures, and cisterns are symmetrically enlarged compatible with mild age-related atrophy. No extra-axial fluid collections are identified. Mild patchy chronic ischemic changes, in the deep cerebral white matter, are expected for age. There is no hemorrhage, mass effect, or edema. Bone windows show no osseous abnormality. IMPRESSION: Mild atrophy and chronic ischemic changes in the deep cerebral white matter-expected for age. No acute findings Interpreted and Authenticated by: Vahid Sanchez 02/12/23
[2023-02-12] MEDS: FAMOTIDINE 20 MG TABLET PO SCH (20:34)
[2023-02-12] MEDS: ACETAMINOPHEN 325 MG TABLET PO PRN (20:34)
[2023-02-12] MEDS: DOCUSATE SODIUM 100 MG CAPSULE PO SCH (20:35)
[2023-02-12] MEDS ORDERED: METOPROLOL TARTRATE 25 MG TABLET PO SCH (21:00)
[2023-02-12] MEDS ORDERED: LACTATED RINGERS 500 ML IV ONE (22:30)
[2023-02-12] MEDS: PIPERACILLIN SODIUM/TAZOBACTAM 2.25 GM in DEXTROSE 5% IN WATER 50 ML IV SCH (23:12)
[2023-02-13] MEDS: 0.9 % SODIUM CHLORIDE 1,000 ML IV SCH (00:54)
[2023-02-13] MEDS: ACETAMINOPHEN 325 MG TABLET PO PRN ×2 (02:56→15:44)
[2023-02-13] MEDS: PIPERACILLIN SODIUM/TAZOBACTAM 2.25 GM in DEXTROSE 5% IN WATER 50 ML IV SCH ×4 (04:28→23:29)
[2023-02-13] MEDS: 0.9 % SODIUM CHLORIDE 10 ML SYRINGE IV SCH ×3 (05:48→21:46)
[2023-02-13 06:43] LABS: Basophils # (Auto) 0.01 K/mcL (0.00-0.30); Basophils % (Auto) 0.1 % (0.0-2.0); Eosinophils # (Auto) 0.12 K/mcL (0.00-0.70); Eosinophils % (Auto) 1.4 % (0.0-7.0); Hematocrit 31.5 % (34.1-44.9); Hemoglobin 9.8 g/dL (11.2-15.7); INR 2.6 (0.9-1.1); Lymphocytes # (Auto) 0.53 K/mcL (1.50-4.80); Lymphocytes % (Auto) 6.2 % (15.5-49.0); Mean Cell Volume 90.5 fL (80.0-100.0); Mean Corpuscular HGB Conc 31.1 g/dL (31.0-36.0); Mean Platelet Volume 10.4 fL (8.8-12.5); Monocytes % (Auto) 9.4 % (1.0-12.0); Neutrophils % (Auto) 82.4 % (38.0-78.0); Platelet Count 108 K/mcL (140-440); Prothrombin Time 29.1 sec (11.9-14.5); RBC 3.48 M/mcL (3.59-5.38); WBC 8.6 K/mcL (4.5-11.0)
[2023-02-13 06:58] LABS: ALT/SGPT 14 U/L (<40); AST/SGOT 24 U/L (<32); Albumin 2.3 gm/dL (3.2-5.2); Albumin/Globulin Ratio 0.7 (1.0-2.3); Alkaline Phosphatase 93 U/L (39-117); Bilirubin,Direct 0.3 mg/dL (<0.3); Bilirubin,Total 0.5 mg/dL (0.1-1.0); Blood Urea Nitrogen 44 mg/dL (8-23); Calcium 8.8 mg/dL (8.6-10.4); Carbon Dioxide 19 mmol/L (22-30); Chloride 105 mmol/L (96-108); Globulin 3.5 gm/dL (2.2-3.7); Glomerular Filtration Rate 29; Glucose 114 mg/dL (70-105); Lactate Dehydrogenase 168 U/L (135-225); Phosphorous 2.3 mg/dL (2.5-4.5); Triglycerides 141 mg/dL (<150); Uric Acid 8.2 mg/dL (2.5-8.0)
[2023-02-13] MEDS: LEVOTHYROXINE 125 MCG TABLET PO SCH (07:32)
--- NOTE | 2023-02-13 07:38 | Internal Med Progress Note ---
SUBJECTIVE Subjective Patient information: Note initiated : 02/13/23 at 7:30 am Service Date, if different from initiated Date: [] Patient: Elaine Pittman a 82 y/o F admitted on 02/12/23. Chief Complaint: [] Interval history: History of present illness: Ms. Pittman is a 82 year old F presents to ED with generalized weakness, malaise, frontal headache with sinus congestion for oral intake, chills although denies fever. Nausea with an episode of vomiting last night. She also complains of urinary urgency. Denies cough shortness of breath or chest pain. No diarrhea. Symptoms have been going on for about 3 days. Patient states her was ill prior to her with the flu and that she started feeling ill. Today her weakness and lethargy continued to become worse where she could barely stay awake. In the ED she was evaluated found of a fever of 102. She was tachycardic in the 120s. Blood pressure 94/45. Lactate was fine but procalcitonin is quite elevated 55. Flu B screen was positive. She had a leukocytosis 12. And a creatinine of 3.0 on a [id number] with a last normal creatinine in last June. Chest x-ray unremarkable. Patient given IV fluids and antibiotics started in ED. Also Tamiflu given in ED. PCR testing was neg for Flu B, also neg for rsv/covid. 02/13/ BC bottles with GNB. Patient required several fluid boluses last night but did not need vasopressors. Patient feeling better today. On Zosyn pending blood cultures and urine cultures pending. Febrile overnight Review of Systems: Pertinent positives as above. Denies chest or abdominal pain/cough/dyspnea/diarrhea. Remaining 10 point review of system reviewed negative PHYSICAL EXAM General: Awake, No acute Distress, obese Eyes/N/T: EOMI, no scleral icterus, Head/Neck: neck supple, full ROM, CV: RRR, No murmurs, Pulm: Clear b/l, no wheezing/rhonchi/rales, no respiratory distress Abd: soft, nontender, +BS x4 Ext: no clubbing/cyanosis/edema, nontender Neuro: more alert today, no focal deficits, moves all extremities, , sensations intact b/l upper/lower Psychiatric: Skin: warm/dry, normal color Constitutional Vitals: Vital Signs Temp Pulse Resp BP Pulse Ox O2 Del Method O2 Flow Rate 98.9 F 117 H 18 99/56 92 Room Air 2 02/13/23 07:01 02/12/23 20:13 02/13/23 07:01 02/13/23 07:01 02/13/23 07:01 02/13/23 07:01 02/13/23 05:00 Period Temp Pulse Resp BP Sys/Oh Pulse Ox O2 Del Method O2 Flow Rate Last 24 Hr 98.3 F-102.5 F 102-132 14-28 77-149/42-137 82-100 Nasal Cannula-Room Air 1-2 Intake and Output 02/12/23 02/13/23 02/13/23 19:59 03:59 11:59 Intake Total 1000 1530 50 Output Total 250 420 380 Balance 750 1110 -330 Weight 97.159 kg Intake & Output: Intake & Output 02/12/23 02/13/23 02/13/23 19:59 03:59 11:59 Intake Total 1000 1530 50 Output Total 250 420 380 Balance 750 1110 -330 Weight 97.159 kg Intake: IV 1000 1530 50 Sodium Chloride 0.9% 1,000 ml @ 980 100 mls/hr IV .Q10H [facility] Rx#: [id number] Lactated Ringers 500 ml @ Wide 1000 500 Open IV BOLUS ONE Rx#: [id number] Zosyn 2.25 gm In Dextrose 5% in 50 50 Water 50 ml @ 100 mls/hr IV Q6H [facility] Rx#:[id number] Output: Urine Catheter Amount 420 380 Void Amount 250 Other: Meal Dinner Percent of Meal Consumed 0% Urine Appearance Clear Clear Straight Cloudy Urine Color Pale Pale Straight Light Alida OBJ DATA Labs 02/13/23 05:35 02/13/23 05:34 Labs: Abnormal Lab Results 02/13/23 02/13/23 02/13/23 05:35 05:35 05:35 WBC RBC 3.48 L Hgb 9.8 L Hct 31.5 L POC Hct Plt Count 108 L Immature Gran % (Auto) Neut % (Auto) 82.4 H Lymph % (Auto) 6.2 L Lymph # (Auto) 0.53 L Moody # (Auto) Immature Gran # Absolute Neutrophils PT 29.1 H INR 2.6 H POC VBG pCO2 at Temp POC VBG pO2 POC VBG HCO3 POC VBG Total CO2 POC Venous O2 Sat POC VBG Base Excess Sodium Carbon Dioxide POC Total CO2 POC Anion Gap POC BUN BUN Creatinine POC Creatinine Glucose POC Glucose Uric Acid Phosphorus Direct Bilirubin Total Protein Albumin Albumin/Globulin Ratio Procalcitonin 24.02 H Urine Appearance Urine Protein Ur Leukocyte Esterase Urine WBC Urine Bacteria Urine Mucus 02/13/23 02/12/23 02/12/23 05:34 10:37 10:37 WBC 12.6 H RBC Hgb 11.0 L Hct POC Hct Plt Count 131 L Immature Gran % (Auto) 0.7 H Neut % (Auto) 85.8 H Lymph % (Auto) 4.7 L Lymph # (Auto) 0.59 L Moody # (Auto) 1.07 H Immature Gran # 0.09 H Absolute Neutrophils 10.81 H PT INR POC VBG pCO2 at Temp POC VBG pO2 POC VBG HCO3 POC VBG Total CO2 POC Venous O2 Sat POC VBG Base Excess Sodium 132 L Carbon Dioxide 19 L POC Total CO2 POC Anion Gap POC BUN BUN 44 H Creatinine 1.6 H POC Creatinine Glucose 114 H POC Glucose Uric Acid 8.2 H Phosphorus 2.3 L Direct Bilirubin 0.3 H 0.4 H Total Protein 5.8 L Albumin 2.3 L 3.0 L Albumin/Globulin Ratio 0.7 L Procalcitonin Urine Appearance Urine Protein Ur Leukocyte Esterase Urine WBC Urine Bacteria Urine Mucus 02/12/23 02/12/23 02/12/23 10:36 10:36 10:36 WBC RBC Hgb Hct POC Hct 31.0 L Plt Count Immature Gran % (Auto) Neut % (Auto) Lymph % (Auto) Lymph # (Auto) Moody # (Auto) Immature Gran # Absolute Neutrophils PT 30.2 H INR 2.8 H POC VBG pCO2 at Temp POC VBG pO2 POC VBG HCO3 POC VBG Total CO2 POC Venous O2 Sat POC VBG Base Excess Sodium Carbon Dioxide 18 L POC Total CO2 19.0 L POC Anion Gap 19.0 H POC BUN 47 H BUN 52 H Creatinine 2.2 H POC Creatinine 3.0 H Glucose 117 H POC Glucose 126 H Uric Acid Phosphorus Direct Bilirubin Total Protein Albumin 2.8 L Albumin/Globulin Ratio Procalcitonin Urine Appearance Urine Protein Ur Leukocyte Esterase Urine WBC Urine Bacteria Urine Mucus 02/12/23 02/12/23 02/12/23 10:36 10:36 10:35 WBC RBC Hgb Hct POC Hct Plt Count Immature Gran % (Auto) Neut % (Auto) Lymph % (Auto) Lymph # (Auto) Moody # (Auto) Immature Gran # Absolute Neutrophils PT INR POC VBG pCO2 at Temp 34.4 L POC VBG pO2 56 H POC VBG HCO3 18.7 L POC VBG Total CO2 20.0 L POC Venous O2 Sat 87.0 H POC VBG Base Excess -7.0 L Sodium Carbon Dioxide POC Total CO2 POC Anion Gap POC BUN BUN Creatinine POC Creatinine Glucose POC Glucose Uric Acid Phosphorus Direct Bilirubin Total Protein Albumin Albumin/Globulin Ratio Procalcitonin 55.35 H Urine Appearance Cloudy A Urine Protein 30 A Ur Leukocyte Esterase 500 A Urine WBC 47 H Urine Bacteria Many A Urine Mucus Few A Meds: Medications Acetaminophen (Acetaminophen 325 Mg Tablet) 650 mg PO Q6HP PRN; Protocol PRN Reason: Per Pain Protocol/Fever > 101 Last Admin: 02/13/23 02:56 Dose: 650 mg Albuterol/Ipratropium (Ipratropium/Albuterol 3 Ml Ampul.Neb) 3 ml NEB Q4HP PRN PRN Reason: Shortness Of Breath Docusate Sodium (Docusate Sodium 100 Mg Capsule) 100 mg PO BID [facility] Last Admin: 02/12/23 20:35 Dose: 100 mg Famotidine (Famotidine 20 Mg Tablet) 20 mg PO BID [facility] Last Admin: 02/12/23 20:34 Dose: 20 mg Potassium Chloride 40 meq/ (Dextrose) 520 mls @ 130 mls/hr IV UD PRN PRN Reason: Potassium < 3 Magnesium Sulfate (Magnesium Sulfate) 2 gm in 50 mls @ 50 mls/hr IV UD PRN PRN Reason: Magnesium </= 1.6 Sodium Chloride (Sodium Chloride 0.9%) 1,000 mls @ 100 mls/hr IV .Q10H [facility] Stop: 02/13/23 10:29 Last Admin: 02/13/23 00:54 Dose: 100 mls/hr Piperacillin Sod/Tazobactam (Sod 2.25 gm/ Dextrose) 50 mls @ 100 mls/hr IV Q6H [facility]; Protocol Last Infusion: 02/13/23 06:13 Dose: Infused Levothyroxine Sodium (Levothyroxine 125 Mcg Tablet) 125 mcg PO ACB [facility] Metoprolol Tartrate (Metoprolol Tartrate 5 Mg/5 Ml Vial) 5 mg IV Q2HP PRN PRN Reason: Tachyarrhythmias HR>110 Ondansetron HCl (Ondansetron 4 Mg/2 Ml Vial) 4 mg IV Q4HP PRN PRN Reason: Nausea And Vomiting Oseltamivir Phosphate (Oseltamivir Phosphate 30 Mg Capsule) 30 mg PO DAILY [facility] Stop: 02/21/23 09:01 Polyethylene Glycol (Polyethylene Glycol 3350 17 Gm Packet) 17 gm PO DAILYP PRN PRN Reason: Constipation Potassium Chloride (Potassium Chloride 20 Meq Tablet) 40 meq PO UD PRN PRN Reason: Potssium is 3-3.5 Potassium Chloride (Potassium Chloride 20 Meq Tablet) 40 meq PO UD PRN PRN Reason: Potassium < 3 Senna (Sennosides 1 Tablet) 2 tab PO DAILYP PRN PRN Reason: Constipation Sodium Chloride (0.9 % Sodium Chloride 10 Ml Syringe) 10 ml IV Q8 [facility] Last Admin: 02/13/23 05:48 Dose: 10 ml Warfarin Sodium (Warfarin Per Pharmacy) 1 order PO UD [facility] A/P Narrative A/P Narrative: A: *UTI(GNB): *Bacteremia (GNB): *Severe Sepsis w/Hypotension: 2/2 above -elevated PCT -febrile o/n, leukocytosis improving *MACRINA on CKD III: -improving *Volume depletion: *Metabolic Acidosis: 2/2 above *Encephalopathy (lethargy/mild confusion): *PAF: on warfarin. currently in sinus *Chronic pain: Follows with pain clinic *HTN: *Hypothyroidism: Continue Synthroid *GERD: *Obesity: BMI 35, lifestyle modifications P: -zosyn pending UC/BC -Tamiflu d/c -IVF -Monitor renal function/UOP -Monitor replace electrolytes -pcr flu/rsv/covid neg -f/u PCT -hold BB for hypotension restart as able, Hold ACEI/torsemide for macrina/hypotension -PT/OT -ppx: Warfarin per pharmacy / home H2 Time Spent With Patient Time: Total time spent is greater than 50% in coordination of care (as documented) at patient's floor/unit and/or counseling patient: Subsequent: Total time with patient: 50 - 65 Minutes QUALITY VTE Deep Vein Thrombosis/Pulmonary Embolism Present on Admission: No
[2023-02-13] MEDS ORDERED: OSELTAMIVIR PHOSPHATE 30 MG CAPSULE PO SCH (09:00)
[2023-02-13] MEDS ORDERED: cefTRIAXone 1 GM VIAL IV SCH (09:00)
[2023-02-13] MEDS: DOCUSATE SODIUM 100 MG CAPSULE PO SCH ×2 (09:21→21:46)
[2023-02-13] MEDS: FAMOTIDINE 20 MG TABLET PO SCH ×2 (09:21→21:46)
[2023-02-13] MEDS ORDERED: WARFARIN 2 MG TABLET PO ONE (14:00)
[2023-02-14] MEDS: 0.9 % SODIUM CHLORIDE 10 ML SYRINGE IV SCH ×3 (05:25→21:03)
[2023-02-14] MEDS: PIPERACILLIN SODIUM/TAZOBACTAM 2.25 GM in DEXTROSE 5% IN WATER 50 ML IV SCH (05:25)
[2023-02-14 06:48] LABS: INR 2.3 (0.9-1.1); Prothrombin Time 26.2 sec (11.9-14.5)
[2023-02-14] MEDS: LEVOTHYROXINE 125 MCG TABLET PO SCH (07:08)
--- NOTE | 2023-02-14 07:33 | Internal Med Progress Note ---
SUBJECTIVE Subjective Patient information: Note initiated : 02/14/23 at 7:29 am Service Date, if different from initiated Date: [] Patient: Elaine Pittman a 82 y/o F admitted on 02/12/23. Chief Complaint: [] Interval history: History of present illness: Ms. Pittman is a 82 year old F presents to ED with generalized weakness, malaise, frontal headache with sinus congestion for oral intake, chills although denies fever. Nausea with an episode of vomiting last night. She also complains of urinary urgency. Denies cough shortness of breath or chest pain. No diarrhea. Symptoms have been going on for about 3 days. Patient states her was ill prior to her with the flu and that she started feeling ill. Today her weakness and lethargy continued to become worse where she could barely stay awake. In the ED she was evaluated found of a fever of 102. She was tachycardic in the 120s. Blood pressure 94/45. Lactate was fine but procalcitonin is quite elevated 55. Flu B screen was positive. She had a leukocytosis 12. And a creatinine of 3.0 on a [id number] with a last normal creatinine in last June. Chest x-ray unremarkable. Patient given IV fluids and antibiotics started in ED. Also Tamiflu given in ED. PCR testing was neg for Flu B, also neg for rsv/covid. 02/13 11/19 BC bottles with GNB. Patient required several fluid boluses last night but did not need vasopressors. Patient feeling better today. On Zosyn pending blood cultures and urine cultures pending. Febrile overnight 02/14 Patient states she is feeling little better today and slept better. Blood cultures and E. coli is likely what the urine cultures will grow. Still febrile overnight. Creatinine/pct improving mild hypophosphatemia. Review of Systems: Pertinent positives as above. Denies chest or abdominal pain/cough/dyspnea/diarrhea. Remaining 10 point review of system reviewed negative PHYSICAL EXAM General: Awake, No acute Distress, obese Eyes/N/T: EOMI, no scleral icterus, Head/Neck: neck supple, full ROM, CV: RRR, 2/6SM Pulm: Clear b/l, no wheezing/rhonchi/rales, no respiratory distress Abd: soft, nontender, +BS x4 Ext: no clubbing/cyanosis, trace b/l LE edema, nontender Neuro: alert, no focal deficits, moves all extremities, , sensations intact b/l upper/lower Psychiatric: Skin: warm/dry, normal color Constitutional Vitals: Vital Signs Temp Pulse Resp BP Pulse Ox O2 Del Method O2 Flow Rate 99.5 F H 117 H 22 151/93 100 Nasal Cannula 2 02/14/23 04:01 02/14/23 04:00 02/14/23 04:00 02/14/23 04:01 02/14/23 04:01 02/14/23 04:01 02/14/23 04:01 Period Temp Pulse Resp BP Sys/Oh Pulse Ox O2 Del Method O2 Flow Rate Last 24 Hr 98.6 F-100.5 F 78-117 18-22 99-151/62-93 90-100 Nasal Cannula- Room Air 2-2 Intake and Output 02/13/23 02/14/23 02/14/23 19:59 03:59 11:59 Intake Total 2060 300 350 Output Total 645 750 380 Balance 1415 -450 -30 Weight 100.108 kg Intake & Output: Intake & Output 02/13/23 02/14/23 02/14/23 19:59 03:59 11:59 Intake Total 2060 300 350 Output Total 645 750 380 Balance 1415 -450 -30 Weight 100.108 kg Intake: IV 1100 50 50 Sodium Chloride 0.9% 1,000 ml @ 1000 100 mls/hr IV .Q10H [facility] Rx#: [id number] Zosyn 2.25 gm In Dextrose 5% in 100 50 50 Water 50 ml @ 100 mls/hr IV Q6H [facility] Rx#:[id number] Oral 960 250 300 Output: Urine Catheter Amount 645 750 380 Other: Meal Lunch Percent of Meal Consumed 100% Urine Appearance Clear Clear Straight Cloudy Urine Color Yellow Yellow Straight Light Alida Urine Odor Normal OBJ DATA Labs 02/13/23 05:35 02/14/23 05:52 Labs: Abnormal Lab Results 02/14/23 02/13/23 02/13/23 06:08 05:35 05:35 WBC RBC Hgb Hct POC Hct Plt Count Immature Gran % (Auto) Neut % (Auto) Lymph % (Auto) Lymph # (Auto) Meagher # (Auto) Immature Gran # Absolute Neutrophils PT 26.2 H 29.1 H INR 2.3 H 2.6 H POC VBG pCO2 at Temp POC VBG pO2 POC VBG HCO3 POC VBG Total CO2 POC Venous O2 Sat POC VBG Base Excess Sodium Carbon Dioxide POC Total CO2 POC Anion Gap POC BUN BUN Creatinine POC Creatinine Glucose POC Glucose Uric Acid Phosphorus Direct Bilirubin Total Protein Albumin Albumin/Globulin Ratio Procalcitonin 24.02 H Urine Appearance Urine Protein Ur Leukocyte Esterase Urine WBC Urine Bacteria Urine Mucus 02/13/23 02/13/23 02/12/23 05:35 05:34 10:37 WBC 12.6 H RBC 3.48 L Hgb 9.8 L 11.0 L Hct 31.5 L POC Hct Plt Count 108 L 131 L Immature Gran % (Auto) 0.7 H Neut % (Auto) 82.4 H 85.8 H Lymph % (Auto) 6.2 L 4.7 L Lymph # (Auto) 0.53 L 0.59 L Meagher # (Auto) 1.07 H Immature Gran # 0.09 H Absolute Neutrophils 10.81 H PT INR POC VBG pCO2 at Temp POC VBG pO2 POC VBG HCO3 POC VBG Total CO2 POC Venous O2 Sat POC VBG Base Excess Sodium 132 L Carbon Dioxide 19 L POC Total CO2 POC Anion Gap POC BUN BUN 44 H Creatinine 1.6 H POC Creatinine Glucose 114 H POC Glucose Uric Acid 8.2 H Phosphorus 2.3 L Direct Bilirubin 0.3 H Total Protein 5.8 L Albumin 2.3 L Albumin/Globulin Ratio 0.7 L Procalcitonin Urine Appearance Urine Protein Ur Leukocyte Esterase Urine WBC Urine Bacteria Urine Mucus 02/12/23 02/12/23 02/12/23 10:37 10:36 10:36 WBC RBC Hgb Hct POC Hct Plt Count Immature Gran % (Auto) Neut % (Auto) Lymph % (Auto) Lymph # (Auto) Meagher # (Auto) Immature Gran # Absolute Neutrophils PT 30.2 H INR 2.8 H POC VBG pCO2 at Temp POC VBG pO2 POC VBG HCO3 POC VBG Total CO2 POC Venous O2 Sat POC VBG Base Excess Sodium Carbon Dioxide 18 L POC Total CO2 POC Anion Gap POC BUN BUN 52 H Creatinine 2.2 H POC Creatinine Glucose 117 H POC Glucose Uric Acid Phosphorus Direct Bilirubin 0.4 H Total Protein Albumin 3.0 L 2.8 L Albumin/Globulin Ratio Procalcitonin Urine Appearance Urine Protein Ur Leukocyte Esterase Urine WBC Urine Bacteria Urine Mucus 02/12/23 02/12/23 02/12/23 10:36 10:36 10:36 WBC RBC Hgb Hct POC Hct 31.0 L Plt Count Immature Gran % (Auto) Neut % (Auto) Lymph % (Auto) Lymph # (Auto) Meagher # (Auto) Immature Gran # Absolute Neutrophils PT INR POC VBG pCO2 at Temp POC VBG pO2 POC VBG HCO3 POC VBG Total CO2 POC Venous O2 Sat POC VBG Base Excess Sodium Carbon Dioxide POC Total CO2 19.0 L POC Anion Gap 19.0 H POC BUN 47 H BUN Creatinine POC Creatinine 3.0 H Glucose POC Glucose 126 H Uric Acid Phosphorus Direct Bilirubin Total Protein Albumin Albumin/Globulin Ratio Procalcitonin 55.35 H Urine Appearance Cloudy A Urine Protein 30 A Ur Leukocyte Esterase 500 A Urine WBC 47 H Urine Bacteria Many A Urine Mucus Few A 02/12/23 10:35 WBC RBC Hgb Hct POC Hct Plt Count Immature Gran % (Auto) Neut % (Auto) Lymph % (Auto) Lymph # (Auto) Meagher # (Auto) Immature Gran # Absolute Neutrophils PT INR POC VBG pCO2 at Temp 34.4 L POC VBG pO2 56 H POC VBG HCO3 18.7 L POC VBG Total CO2 20.0 L POC Venous O2 Sat 87.0 H POC VBG Base Excess -7.0 L Sodium Carbon Dioxide POC Total CO2 POC Anion Gap POC BUN BUN Creatinine POC Creatinine Glucose POC Glucose Uric Acid Phosphorus Direct Bilirubin Total Protein Albumin Albumin/Globulin Ratio Procalcitonin Urine Appearance Urine Protein Ur Leukocyte Esterase Urine WBC Urine Bacteria Urine Mucus Meds: Medications Acetaminophen (Acetaminophen 325 Mg Tablet) 650 mg PO Q6HP PRN; Protocol PRN Reason: Per Pain Protocol/Fever > 101 Last Admin: 02/13/23 15:44 Dose: 650 mg Albuterol/Ipratropium (Ipratropium/Albuterol 3 Ml Ampul.Neb) 3 ml NEB Q4HP PRN PRN Reason: Shortness Of Breath Docusate Sodium (Docusate Sodium 100 Mg Capsule) 100 mg PO BID [facility] Last Admin: 02/13/23 21:46 Dose: 100 mg Famotidine (Famotidine 20 Mg Tablet) 20 mg PO BID [facility] Last Admin: 02/13/23 21:46 Dose: 20 mg Potassium Chloride 40 meq/ (Dextrose) 520 mls @ 130 mls/hr IV UD PRN PRN Reason: Potassium < 3 Magnesium Sulfate (Magnesium Sulfate) 2 gm in 50 mls @ 50 mls/hr IV UD PRN PRN Reason: Magnesium </= 1.6 Piperacillin Sod/Tazobactam (Sod 2.25 gm/ Dextrose) 50 mls @ 100 mls/hr IV Q6H [facility]; Protocol Last Infusion: 02/14/23 06:03 Dose: Infused Levothyroxine Sodium (Levothyroxine 125 Mcg Tablet) 125 mcg PO ACB [facility] Last Admin: 02/14/23 07:08 Dose: 125 mcg Metoprolol Tartrate (Metoprolol Tartrate 5 Mg/5 Ml Vial) 5 mg IV Q2HP PRN PRN Reason: Tachyarrhythmias HR>110 Ondansetron HCl (Ondansetron 4 Mg/2 Ml Vial) 4 mg IV Q4HP PRN PRN Reason: Nausea And Vomiting Polyethylene Glycol (Polyethylene Glycol 3350 17 Gm Packet) 17 gm PO DAILYP PRN PRN Reason: Constipation Potassium Chloride (Potassium Chloride 20 Meq Tablet) 40 meq PO UD PRN PRN Reason: Potssium is 3-3.5 Potassium Chloride (Potassium Chloride 20 Meq Tablet) 40 meq PO UD PRN PRN Reason: Potassium < 3 Senna (Sennosides 1 Tablet) 2 tab PO DAILYP PRN PRN Reason: Constipation Sodium Chloride (0.9 % Sodium Chloride 10 Ml Syringe) 10 ml IV Q8 [facility] Last Admin: 02/14/23 05:25 Dose: 10 ml Warfarin Sodium (Warfarin Per Pharmacy) 1 order PO UD [facility] A/P Narrative A/P Narrative: A: *UTI(E.coli), complicated: *Bacteremia (E.coli): *Severe Sepsis w/Hypotension: 2/2 above -elevated PCT improving -febrile o/n, leukocytosis improving *MACRINA on CKD III: -improving *Volume depletion: improving *Metabolic Acidosis: 2/2 above *Hyponatremia/Hypophos: *Encephalopathy (lethargy/mild confusion): slowly getting better. 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 currently in sinus *Chronic pain: Follows with pain clinic *HTN: *Hypothyroidism: Continue Synthroid *GERD: *Obesity: BMI 35, lifestyle modifications P: -zosyn pending UC/BC -IVF d/c -Monitor renal function/UOP -Monitor replace electrolytes -pcr flu/rsv/covid neg -f/u PCT -restart home BB, Hold ACEI/torsemide for macrina/hypotension -PT/OT -ppx: Warfarin per pharmacy / home H2 Time Spent With Patient Time: Total time spent is greater than 50% in coordination of care (as documented) at patient's floor/unit and/or counseling patient: Subsequent: Total time with patient: 50 - 65 Minutes QUALITY VTE Deep Vein Thrombosis/Pulmonary Embolism Present on Admission: No
[2023-02-14 07:44] LABS: ALT/SGPT 15 U/L (<40); AST/SGOT 23 U/L (<32); Albumin 2.9 gm/dL (3.2-5.2); Albumin/Globulin Ratio 0.8 (1.0-2.3); Alkaline Phosphatase 115 U/L (39-117); Bilirubin,Direct < 0.2 mg/dL (0-0.3); Bilirubin,Total 0.4 mg/dL (0.1-1.0); Blood Urea Nitrogen 27 mg/dL (8-23); Carbon Dioxide 19 mmol/L (22-30); Chloride 106 mmol/L (96-108); Globulin 3.8 gm/dL (2.2-3.7); Glomerular Filtration Rate 52; Glucose 112 mg/dL (70-105); Lactate Dehydrogenase 184 U/L (135-225); Triglycerides 202 mg/dL (<150); Uric Acid 5.6 mg/dL (2.5-8.0)
[2023-02-14] MEDS: DOCUSATE SODIUM 100 MG CAPSULE PO SCH ×2 (09:06→21:03)
[2023-02-14] MEDS: METOPROLOL TARTRATE 25 MG TABLET PO SCH ×2 (09:07→21:03)
[2023-02-14] MEDS: PHOSPHORUS 250 MG TABLET PO SCH ×2 (09:07→21:03)
[2023-02-14] MEDS: FAMOTIDINE 20 MG TABLET PO SCH ×2 (09:07→21:03)
[2023-02-14] MEDS: cefTRIAXone 2 GM in DEXTROSE 5% IN WATER 50 ML IV SCH (11:22)
[2023-02-14] MEDS ORDERED: WARFARIN 2 MG TABLET PO ONE (14:00)
--- NOTE | 2023-02-14 16:27 | Discharge Summary ---
Discharge Provider Provider IMPORTANT FOLLOW-UP INFORMATION FOR PCP: Patient information: Note initiated : 02/14/23 at 4:25 pm Service Date, if different from initiated Date: [] Patient: Elaine Pittman a 82 y/o F admitted on 02/12/23. Chief Complaint: [] Date of admission: 02/12/23 14:20 Discharge date: 02/17/23 Primary care physician: EDWIN Hutchinson Consults: 02/12/23 Consult to Physician [CONS] Stat Comment: Consulting Provider: Martín Corley Reason For Exam: Physician to Consult COURSE Hospital Course Hospital course: History of present illness: Ms. Pittman is a 82 year old F presents to ED with generalized weakness, malaise, frontal headache with sinus congestion for oral intake, chills although denies fever. Nausea with an episode of vomiting last night. She also complains of urinary urgency. Denies cough shortness of breath or chest pain. No diarrhea. Symptoms have been going on for about 3 days. Patient states her was ill prior to her with the flu and that she started feeling ill. Today her weakness and lethargy continued to become worse where she could barely stay awake. In the ED she was evaluated found of a fever of 102. She was tachycardic in the 120s. Blood pressure 94/45. Lactate was fine but procalcitonin is quite elevated 55. Flu B screen was positive. She had a leukocytosis 12. And a creatinine of 3.0 on a [id number] with a last normal creatinine in last June. Chest x-ray unremarkable. Patient given IV fluids and antibiotics started in ED. Also Tamiflu given in ED. PCR testing was neg for Flu B, also neg for rsv/covid. 02/13 11/19 BC bottles with GNB. Patient required several fluid boluses last night but did not need vasopressors. Patient feeling better today. On Zosyn pending blood cultures and urine cultures pending. Febrile overnight 02/14 Patient states she is feeling little better today and slept better. Blood cultures and E. coli is likely what the urine cultures will grow. Still febrile overnight. Creatinine/pct improving mild hypophosphatemia. 02/15 Patient says she slept so-so. Feels weak. Family concerned about going home and encourage her to accept SNF which is now accepting. Renal function improving. 02/16 Feels weak but otherwise no new complaints or overnight events. Restarted home torsemide today 02/17 Patient doing well. No overnight event or new complaints. Patient appears to be getting her strength back. Family at bedside. A: *UTI(E.coli), complicated: *Bacteremia (E.coli): *Severe Sepsis w/Hypotension: *MACRINA on CKD III: *Volume depletion: *Metabolic Acidosis: *Hyponatremia/Hypophos: *Encephalopathy (lethargy/mild confusion): *Suspect MCI: *Anemia: *PAF: on warfarin. currently in sinus *Chronic pain: Follows with pain clinic *HTN: *Hypothyroidism: *GERD: *Obesity: BMI 35, lifestyle modifications *Generalized weakness/deconditioning: P: -cefdinir to complete course Discharge diagnosis: Complicated UTI bacteremia sepsis severe acute kidney injury Secondary discharge diagnosis: Vomiting patient metabolic acidosis electrolyte imbalance Encephalopathy anemia paroxysmal A-fib hypertension chronic pain hypothyroidism GERD obesity Time Spent with Patient Time attestation: Total time spent providing and/or coordinating discharge services: Time spent: Greater than 30 minutes EXAM Constitutional Vitals: Temp Pulse Resp BP Pulse Ox O2 Del Method O2 Flow Rate 97.1 F 117 H 18 123/76 98 Room Air 2 02/14/23 12:08 02/14/23 04:00 02/14/23 12:08 02/14/23 12:08 02/14/23 12:08 02/14/23 12:08 02/14/23 04:01 Discharge Data Data Completed and Pending Labs on day of discharge: Labs from last 24 hours 02/14/23 02/14/23 02/14/23 06:08 05:52 05:52 PT 26.2 H INR 2.3 H Sodium 135 Potassium 4.3 Chloride 106 Carbon Dioxide 19 L Anion Gap 10.0 BUN 27 H Creatinine 1.0 GFR Calculation 52 Glucose 112 H Uric Acid 5.6 Calcium 10.0 Phosphorus 2.0 L Magnesium 2.0 Total Bilirubin 0.4 Direct Bilirubin < 0.2 GGT 18 AST 23 ALT 15 Alkaline Phosphatase 115 Lactate Dehydrogenase 184 Total Protein 6.7 Albumin 2.9 L Globulin 3.8 H Albumin/Globulin Ratio 0.8 L Triglycerides 202 H Procalcitonin 10.16 H Discharge Plan Patient/Caregiver Discharge Instructions Activity: increase activity as tolerated Diet: Regular Diet Prescriptions: New cefdinir 300 mg capsule 300 mg PO BID Qty: 10 0RF Rx Instructions: start on 02/18/2023 Continued red yeast rice 600 mg capsule 600 mg PO QAM Rx Instructions: administer with a meal or snack levothyroxine 125 mcg tablet 125 mcg PO QAM vitamin B complex [B Complex 1] tablet 1 tab PO QDAY ascorbic acid (vitamin C) 500 mg capsule 500 mg PO QDAY cranberry 400 MG capsule 400 mg PO BID multivitamin Tablet 1 tab PO QAM alendronate 70 mg tablet 1 tab PO WEEKLY warfarin 2.5 mg tablet See Rx Instructions .ROUTE .COMPLEX Rx Instructions: Take 1/2 tablet by mouth Tuesdays and Fridays and 1 tablet on all other days. acetaminophen-codeine 300-60 mg tablet 1 tab PO Q4HP PRN (Reason: Pain) calcium 1 tab PO DAILY famotidine 20 mg Tablet 20 mg PO BID lisinopril 20 mg tablet 1 tab PO QAM Focus Factor 1 tab PO DAILY docusate sodium 100 mg capsule 100 mg PO BID Qty: 60 0RF torsemide 10 mg tablet 10 mg PO QDAY metoprolol tartrate 25 mg tablet 25 mg PO BID Discontinued doxycycline hyclate 100 mg capsule 1 cap PO BID Follow Up Plan Follow up with: Alina Cotto ARNP [Primary Care Provider] - Patient Disposition: Xfer SNF Prognosis: Fair Rehab Potential: Fair I certify that the patient requires SNF services: Yes Overall status at discharge: patient is progressing back to baseline Discharge Orders: Discharge Order (Routine); Ordered 02/17/23 Ordered By: Martín Corley [facility] VTE Deep Vein Thrombosis/Pulmonary Embolism Present on Admission: No
[2023-02-15] MEDS: ONDANSETRON 4 MG/2 ML VIAL IV PRN (05:22)
[2023-02-15] MEDS: 0.9 % SODIUM CHLORIDE 10 ML SYRINGE IV SCH ×3 (05:22→20:06)
[2023-02-15 06:51] LABS: INR 2.5 (0.9-1.1); Prothrombin Time 27.8 sec (11.9-14.5)
[2023-02-15] MEDS: LEVOTHYROXINE 125 MCG TABLET PO SCH (07:11)
--- NOTE | 2023-02-15 09:08 | Internal Med Progress Note ---
SUBJECTIVE Subjective Patient information: Note initiated : 02/15/23 at 9:04 am Service Date, if different from initiated Date: [] Patient: Elaine Pittman a 82 y/o F admitted on 02/12/23. Chief Complaint: [] Interval history: History of present illness: Ms. Pittman is a 82 year old F presents to ED with generalized weakness, malaise, frontal headache with sinus congestion for oral intake, chills although denies fever. Nausea with an episode of vomiting last night. She also complains of urinary urgency. Denies cough shortness of breath or chest pain. No diarrhea. Symptoms have been going on for about 3 days. Patient states her was ill prior to her with the flu and that she started feeling ill. Today her weakness and lethargy continued to become worse where she could barely stay awake. In the ED she was evaluated found of a fever of 102. She was tachycardic in the 120s. Blood pressure 94/45. Lactate was fine but procalcitonin is quite elevated 55. Flu B screen was positive. She had a leukocytosis 12. And a creatinine of 3.0 on a [id number] with a last normal creatinine in last June. Chest x-ray unremarkable. Patient given IV fluids and antibiotics started in ED. Also Tamiflu given in ED. PCR testing was neg for Flu B, also neg for rsv/covid. 02/13 11/19 BC bottles with GNB. Patient required several fluid boluses last night but did not need vasopressors. Patient feeling better today. On Zosyn pending blood cultures and urine cultures pending. Febrile overnight 02/14 Patient states she is feeling little better today and slept better. Blood cultures and E. coli is likely what the urine cultures will grow. Still febrile overnight. Creatinine/pct improving mild hypophosphatemia. 02/15 Patient says she slept so-so. Feels weak. Family concerned about going home and encourage her to accept SNF which is now accepting. Renal function improving. Review of Systems: Pertinent positives as above. Denies chest or abdominal pain/cough/dyspnea/diarrhea. Remaining 10 point review of system reviewed negative PHYSICAL EXAM General: Awake, No acute Distress, obese Eyes/N/T: EOMI, no scleral icterus, Head/Neck: neck supple, full ROM, CV: RRR, 2/6SM Pulm: Clear b/l, no wheezing/rhonchi/rales, no respiratory distress Abd: soft, nontender, +BS x4 Ext: no clubbing/cyanosis, trace b/l LE edema, nontender Neuro: alert, no focal deficits, moves all extremities, , sensations intact b/l upper/lower Psychiatric: Skin: warm/dry, normal color Constitutional Vitals: Vital Signs Temp Pulse Resp BP Pulse Ox O2 Del Method O2 Flow Rate 98.1 F 90 16 150/99 94 Room Air 2 02/15/23 07:00 02/15/23 07:00 02/15/23 07:00 02/15/23 07:00 02/15/23 07:00 02/15/23 07:00 02/14/23 04:01 Period Temp Pulse Resp BP Sys/Oh Pulse Ox O2 Del Method O2 Flow Rate Last 24 Hr 97.1 F-99.7 F 90-118 14-20 110-150/67-99 92-98 Room Air-Room Air Intake and Output 02/14/23 02/15/23 02/15/23 19:59 03:59 11:59 Intake Total 50 200 100 Output Total 520 2 2 Balance -470 198 98 Intake & Output: Intake & Output 02/14/23 02/15/23 02/15/23 19:59 03:59 11:59 Intake Total 50 200 100 Output Total 520 2 2 Balance -470 198 98 Intake: IV 50 Rocephin 2 gm In Dextrose 5% in 50 Water 50 ml @ 100 mls/hr IV Q24H [facility] Rx#:[id number] Oral 200 100 Output: Urine Catheter Amount 520 Void Amount 0 # of times incontinent of urine 2 2 Other: Meal Dinner Percent of Meal Consumed 15 Feeding Ability Needs Supervision Urine Appearance Sediment Urine Color Yellow Yellow # Voids 1 1 OBJ DATA Labs 02/13/23 05:35 02/14/23 05:52 Labs: Abnormal Lab Results 02/15/23 02/14/23 02/14/23 05:51 06:08 05:52 WBC RBC Hgb Hct POC Hct Plt Count Immature Gran % (Auto) Neut % (Auto) Lymph % (Auto) Lymph # (Auto) [place] # (Auto) Immature Gran # Absolute Neutrophils PT 27.8 H 26.2 H INR 2.5 H 2.3 H POC VBG pCO2 at Temp POC VBG pO2 POC VBG HCO3 POC VBG Total CO2 POC Venous O2 Sat POC VBG Base Excess Sodium Carbon Dioxide POC Total CO2 POC Anion Gap POC BUN BUN Creatinine POC Creatinine Glucose POC Glucose Uric Acid Phosphorus Direct Bilirubin Total Protein Albumin Globulin Albumin/Globulin Ratio Triglycerides Procalcitonin 10.16 H Urine Appearance Urine Protein Ur Leukocyte Esterase Urine WBC Urine Bacteria Urine Mucus 02/14/23 02/13/23 02/13/23 05:52 05:35 05:35 WBC RBC Hgb Hct POC Hct Plt Count Immature Gran % (Auto) Neut % (Auto) Lymph % (Auto) Lymph # (Auto) [place] # (Auto) Immature Gran # Absolute Neutrophils PT 29.1 H INR 2.6 H POC VBG pCO2 at Temp POC VBG pO2 POC VBG HCO3 POC VBG Total CO2 POC Venous O2 Sat POC VBG Base Excess Sodium Carbon Dioxide 19 L POC Total CO2 POC Anion Gap POC BUN BUN 27 H Creatinine POC Creatinine Glucose 112 H POC Glucose Uric Acid Phosphorus 2.0 L Direct Bilirubin Total Protein Albumin 2.9 L Globulin 3.8 H Albumin/Globulin Ratio 0.8 L Triglycerides 202 H Procalcitonin 24.02 H Urine Appearance Urine Protein Ur Leukocyte Esterase Urine WBC Urine Bacteria Urine Mucus 02/13/23 02/13/23 02/12/23 05:35 05:34 10:37 WBC 12.6 H RBC 3.48 L Hgb 9.8 L 11.0 L Hct 31.5 L POC Hct Plt Count 108 L 131 L Immature Gran % (Auto) 0.7 H Neut % (Auto) 82.4 H 85.8 H Lymph % (Auto) 6.2 L 4.7 L Lymph # (Auto) 0.53 L 0.59 L [place] # (Auto) 1.07 H Immature Gran # 0.09 H Absolute Neutrophils 10.81 H PT INR POC VBG pCO2 at Temp POC VBG pO2 POC VBG HCO3 POC VBG Total CO2 POC Venous O2 Sat POC VBG Base Excess Sodium 132 L Carbon Dioxide 19 L POC Total CO2 POC Anion Gap POC BUN BUN 44 H Creatinine 1.6 H POC Creatinine Glucose 114 H POC Glucose Uric Acid 8.2 H Phosphorus 2.3 L Direct Bilirubin 0.3 H Total Protein 5.8 L Albumin 2.3 L Globulin Albumin/Globulin Ratio 0.7 L Triglycerides Procalcitonin Urine Appearance Urine Protein Ur Leukocyte Esterase Urine WBC Urine Bacteria Urine Mucus 02/12/23 02/12/23 02/12/23 10:37 10:36 10:36 WBC RBC Hgb Hct POC Hct Plt Count Immature Gran % (Auto) Neut % (Auto) Lymph % (Auto) Lymph # (Auto) [place] # (Auto) Immature Gran # Absolute Neutrophils PT 30.2 H INR 2.8 H POC VBG pCO2 at Temp POC VBG pO2 POC VBG HCO3 POC VBG Total CO2 POC Venous O2 Sat POC VBG Base Excess Sodium Carbon Dioxide 18 L POC Total CO2 POC Anion Gap POC BUN BUN 52 H Creatinine 2.2 H POC Creatinine Glucose 117 H POC Glucose Uric Acid Phosphorus Direct Bilirubin 0.4 H Total Protein Albumin 3.0 L 2.8 L Globulin Albumin/Globulin Ratio Triglycerides Procalcitonin Urine Appearance Urine Protein Ur Leukocyte Esterase Urine WBC Urine Bacteria Urine Mucus 02/12/23 02/12/23 02/12/23 10:36 10:36 10:36 WBC RBC Hgb Hct POC Hct 31.0 L Plt Count Immature Gran % (Auto) Neut % (Auto) Lymph % (Auto) Lymph # (Auto) [place] # (Auto) Immature Gran # Absolute Neutrophils PT INR POC VBG pCO2 at Temp POC VBG pO2 POC VBG HCO3 POC VBG Total CO2 POC Venous O2 Sat POC VBG Base Excess Sodium Carbon Dioxide POC Total CO2 19.0 L POC Anion Gap 19.0 H POC BUN 47 H BUN Creatinine POC Creatinine 3.0 H Glucose POC Glucose 126 H Uric Acid Phosphorus Direct Bilirubin Total Protein Albumin Globulin Albumin/Globulin Ratio Triglycerides Procalcitonin 55.35 H Urine Appearance Cloudy A Urine Protein 30 A Ur Leukocyte Esterase 500 A Urine WBC 47 H Urine Bacteria Many A Urine Mucus Few A 02/12/23 10:35 WBC RBC Hgb Hct POC Hct Plt Count Immature Gran % (Auto) Neut % (Auto) Lymph % (Auto) Lymph # (Auto) [place] # (Auto) Immature Gran # Absolute Neutrophils PT INR POC VBG pCO2 at Temp 34.4 L POC VBG pO2 56 H POC VBG HCO3 18.7 L POC VBG Total CO2 20.0 L POC Venous O2 Sat 87.0 H POC VBG Base Excess -7.0 L Sodium Carbon Dioxide POC Total CO2 POC Anion Gap POC BUN BUN Creatinine POC Creatinine Glucose POC Glucose Uric Acid Phosphorus Direct Bilirubin Total Protein Albumin Globulin Albumin/Globulin Ratio Triglycerides Procalcitonin Urine Appearance Urine Protein Ur Leukocyte Esterase Urine WBC Urine Bacteria Urine Mucus Meds: Medications Acetaminophen (Acetaminophen 325 Mg Tablet) 650 mg PO Q6HP PRN; Protocol PRN Reason: Per Pain Protocol/Fever > 101 Last Admin: 02/13/23 15:44 Dose: 650 mg Albuterol/Ipratropium (Ipratropium/Albuterol 3 Ml Ampul.Neb) 3 ml NEB Q4HP PRN PRN Reason: Shortness Of Breath Docusate Sodium (Docusate Sodium 100 Mg Capsule) 100 mg PO BID [facility] Last Admin: 02/14/23 21:03 Dose: 100 mg Famotidine (Famotidine 20 Mg Tablet) 20 mg PO BID [facility] Last Admin: 02/14/23 21:03 Dose: 20 mg Potassium Chloride 40 meq/ (Dextrose) 520 mls @ 130 mls/hr IV UD PRN PRN Reason: Potassium < 3 Magnesium Sulfate (Magnesium Sulfate) 2 gm in 50 mls @ 50 mls/hr IV UD PRN PRN Reason: Magnesium </= 1.6 Ceftriaxone Sodium 2 gm/ (Dextrose) 50 mls @ 100 mls/hr IV Q24H [facility] Last Infusion: 02/14/23 14:49 Dose: Infused Levothyroxine Sodium (Levothyroxine 125 Mcg Tablet) 125 mcg PO ACB [facility] Last Admin: 02/15/23 07:11 Dose: 125 mcg Lisinopril (Lisinopril 20 Mg Tablet) 20 mg PO QAM [facility] Metoprolol Tartrate (Metoprolol Tartrate 5 Mg/5 Ml Vial) 5 mg IV Q2HP PRN PRN Reason: Tachyarrhythmias HR>110 Metoprolol Tartrate (Metoprolol Tartrate 25 Mg Tablet) 25 mg PO BID [facility] Last Admin: 02/14/23 21:03 Dose: 25 mg Ondansetron HCl (Ondansetron 4 Mg/2 Ml Vial) 4 mg IV Q4HP PRN PRN Reason: Nausea And Vomiting Last Admin: 02/15/23 05:22 Dose: 4 mg Polyethylene Glycol (Polyethylene Glycol 3350 17 Gm Packet) 17 gm PO DAILYP PRN PRN Reason: Constipation Potassium Chloride (Potassium Chloride 20 Meq Tablet) 40 meq PO UD PRN PRN Reason: Potssium is 3-3.5 Potassium Chloride (Potassium Chloride 20 Meq Tablet) 40 meq PO UD PRN PRN Reason: Potassium < 3 Senna (Sennosides 1 Tablet) 2 tab PO DAILYP PRN PRN Reason: Constipation Sodium Chloride (0.9 % Sodium Chloride 10 Ml Syringe) 10 ml IV Q8 [facility] Last Admin: 02/15/23 05:22 Dose: 10 ml Warfarin Sodium (Warfarin Per Pharmacy) 1 order PO UD [facility] Warfarin Sodium (Warfarin 2.5 Mg Tablet) 2.5 mg PO DAILY@1400 [facility] Stop: 02/15/23 17:00 A/P Narrative A/P Narrative: A: *UTI(E.coli), complicated: *Bacteremia (E.coli): *Severe Sepsis w/Hypotension: 2/2 above, resolved -elevated PCT improving -febrile o/n, leukocytosis improving *SHARATH on CKD III: -improved *Volume depletion: improved *Metabolic Acidosis: 2/2 above *Hyponatremia/Hypophos: *Encephalopathy (lethargy/mild confusion): slowly getting better. suspect underlying MCI *Suspect MCI: *Anemia: *PAF: on warfarin. currently in sinus *Chronic pain: Follows with pain clinic *HTN: *Hypothyroidism: Continue Synthroid *GERD: *Obesity: BMI 35, lifestyle modifications *Generalized weakness/deconditioning: P: -zosyn to rocephin -IVF d/c -Monitor renal function/UOP -Monitor replace electrolytes -pcr flu/rsv/covid neg -f/u PCT -restart home BB, Hold ACEI/torsemide for sharath/hypotension and restart as needed -PT/OT -CM for placement -ppx: Warfarin per pharmacy / home H2 Time Spent With Patient Time: Total time spent is greater than 50% in coordination of care (as documented) at patient's floor/unit and/or counseling patient: Subsequent: Total time with patient: 35 - 49 minutes QUALITY VTE Deep Vein Thrombosis/Pulmonary Embolism Present on Admission: No
[2023-02-15] MEDS: cefTRIAXone 2 GM in DEXTROSE 5% IN WATER 50 ML IV SCH (09:51)
[2023-02-15] MEDS: METOPROLOL TARTRATE 25 MG TABLET PO SCH ×2 (09:51→20:05)
[2023-02-15] MEDS: FAMOTIDINE 20 MG TABLET PO SCH ×2 (09:51→20:06)
[2023-02-15] MEDS: SODIUM BICARBONATE 650 MG TABLET PO SCH ×2 (09:52→20:05)
[2023-02-15] MEDS: LISINOPRIL 20 MG TABLET PO SCH (09:52)
[2023-02-15] MEDS: DOCUSATE SODIUM 100 MG CAPSULE PO SCH ×2 (09:52→20:06)
[2023-02-15] MEDS ORDERED: WARFARIN 2.5 MG TABLET PO SCH (14:00)
[2023-02-15] MEDS: POLYETHYLENE GLYCOL 3350 17 GM PACKET PO PRN (20:05)
[2023-02-16] MEDS: 0.9 % SODIUM CHLORIDE 10 ML SYRINGE IV SCH ×3 (06:13→21:29)
[2023-02-16] MEDS: LEVOTHYROXINE 125 MCG TABLET PO SCH (07:07)
[2023-02-16] MEDS: POLYETHYLENE GLYCOL 3350 17 GM PACKET PO PRN (07:07)
[2023-02-16 07:40] LABS: INR 2.9 (0.9-1.1); Prothrombin Time 31.1 sec (11.9-14.5)
--- NOTE | 2023-02-16 08:26 | Internal Med Progress Note ---
SUBJECTIVE Subjective Patient information: Note initiated : 02/16/23 at 8:24 am Service Date, if different from initiated Date: [] Patient: Elaine Pittman a 82 y/o F admitted on 02/12/23. Chief Complaint: [] Interval history: History of present illness: Ms. Pittman is a 82 year old F presents to ED with generalized weakness, malaise, frontal headache with sinus congestion for oral intake, chills although denies fever. Nausea with an episode of vomiting last night. She also complains of urinary urgency. Denies cough shortness of breath or chest pain. No diarrhea. Symptoms have been going on for about 3 days. Patient states her was ill prior to her with the flu and that she started feeling ill. Today her weakness and lethargy continued to become worse where she could barely stay awake. In the ED she was evaluated found of a fever of 102. She was tachycardic in the 120s. Blood pressure 94/45. Lactate was fine but procalcitonin is quite elevated 55. Flu B screen was positive. She had a leukocytosis 12. And a creatinine of 3.0 on a dpfbj-er-dzha with a last normal creatinine in last June. Chest x-ray unremarkable. Patient given IV fluids and antibiotics started in ED. Also Tamiflu given in ED. PCR testing was neg for Flu B, also neg for rsv/covid. 02/13 11/19 BC bottles with GNB. Patient required several fluid boluses last night but did not need vasopressors. Patient feeling better today. On Zosyn pending blood cultures and urine cultures pending. Febrile overnight 02/14 Patient states she is feeling little better today and slept better. Blood cultures and E. coli is likely what the urine cultures will grow. Still febrile overnight. Creatinine/pct improving mild hypophosphatemia. 02/15 Patient says she slept so-so. Feels weak. Family concerned about going home and encourage her to accept SNF which is now accepting. Renal function improving. 02/16 Feels weak but otherwise no new complaints or overnight events. Restarted home torsemide today Review of Systems: Pertinent positives as above. Denies chest or abdominal pain/cough/dyspnea/diarrhea. Remaining 10 point review of system reviewed negative PHYSICAL EXAM General: Awake, No acute Distress, obese Eyes/N/T: EOMI, no scleral icterus, Head/Neck: neck supple, full ROM, CV: Mild tachycardia but regular,, 2/6SM Pulm: Clear b/l, no wheezing/rhonchi/rales, no respiratory distress Abd: soft, nontender, +BS x4 Ext: no clubbing/cyanosis, trace b/l LE edema, nontender Neuro: alert, no focal deficits, moves all extremities, , sensations intact b/l upper/lower Psychiatric: Skin: warm/dry, normal color Constitutional Vitals: Vital Signs Temp Pulse Resp BP Pulse Ox O2 Del Method O2 Flow Rate 98.2 F 82 20 137/81 94 Room Air 2 02/16/23 03:53 02/16/23 03:53 02/16/23 03:53 02/16/23 03:53 02/16/23 03:53 02/16/23 07:22 02/14/23 04:01 Period Temp Pulse Resp BP Sys/Oh Pulse Ox O2 Del Method O2 Flow Rate Last 24 Hr 97.8 F-99 F 9-99 14-24 137-161/81-93 94-98 Room Air-Room Air Intake and Output 02/15/23 02/16/23 02/16/23 19:59 03:59 11:59 Intake Total 300 490 Output Total 153 2 Balance 147 488 Weight 97.154 kg Intake & Output: Intake & Output 02/15/23 02/16/23 02/16/23 19:59 03:59 11:59 Intake Total 300 490 Output Total 153 2 Balance 147 488 Weight 97.154 kg Intake: Oral 490 GI Tube Flush 300 Output: Void Amount 150 # of times incontinent of urine 3 2 Other: Meal Dinner Percent of Meal Consumed 75% Urine Appearance Clear Urine Color Yellow Stool Size Smear Small Copious Stool Color Brown Brown Brown Yellow Stool Consistency Loose Liquid Soft Formed # Voids 1 # Bowel Movements 1 # of times incontinent of 1 Bowels OBJ DATA Labs 02/13/23 05:35 02/14/23 05:52 Labs: Abnormal Lab Results 02/16/23 02/15/23 02/14/23 05:53 05:51 06:08 PT 31.1 H 27.8 H 26.2 H INR 2.9 H 2.5 H 2.3 H Carbon Dioxide BUN Glucose Phosphorus Albumin Globulin Albumin/Globulin Ratio Triglycerides Procalcitonin 02/14/23 02/14/23 05:52 05:52 PT INR Carbon Dioxide 19 L BUN 27 H Glucose 112 H Phosphorus 2.0 L Albumin 2.9 L Globulin 3.8 H Albumin/Globulin Ratio 0.8 L Triglycerides 202 H Procalcitonin 10.16 H Meds: Medications Acetaminophen (Acetaminophen 325 Mg Tablet) 650 mg PO Q6HP PRN; Protocol PRN Reason: Per Pain Protocol/Fever > 101 Last Admin: 02/13/23 15:44 Dose: 650 mg Albuterol/Ipratropium (Ipratropium/Albuterol 3 Ml Ampul.Neb) 3 ml NEB Q4HP PRN PRN Reason: Shortness Of Breath Docusate Sodium (Docusate Sodium 100 Mg Capsule) 100 mg PO BID [facility] Last Admin: 02/15/23 20:06 Dose: 100 mg Famotidine (Famotidine 20 Mg Tablet) 20 mg PO BID [facility] Last Admin: 02/15/23 20:06 Dose: 20 mg Potassium Chloride 40 meq/ (Dextrose) 520 mls @ 130 mls/hr IV UD PRN PRN Reason: Potassium < 3 Magnesium Sulfate (Magnesium Sulfate) 2 gm in 50 mls @ 50 mls/hr IV UD PRN PRN Reason: Magnesium </= 1.6 Ceftriaxone Sodium 2 gm/ (Dextrose) 50 mls @ 100 mls/hr IV Q24H [facility] Last Infusion: 02/15/23 11:08 Dose: Infused Levothyroxine Sodium (Levothyroxine 125 Mcg Tablet) 125 mcg PO ACB [facility] Last Admin: 02/16/23 07:07 Dose: 125 mcg Lisinopril (Lisinopril 20 Mg Tablet) 20 mg PO QAM [facility] Last Admin: 02/15/23 09:52 Dose: 20 mg Metoprolol Tartrate (Metoprolol Tartrate 5 Mg/5 Ml Vial) 5 mg IV Q2HP PRN PRN Reason: Tachyarrhythmias HR>110 Metoprolol Tartrate (Metoprolol Tartrate 25 Mg Tablet) 25 mg PO BID [facility] Last Admin: 02/15/23 20:05 Dose: 25 mg Ondansetron HCl (Ondansetron 4 Mg/2 Ml Vial) 4 mg IV Q4HP PRN PRN Reason: Nausea And Vomiting Last Admin: 02/15/23 05:22 Dose: 4 mg Polyethylene Glycol (Polyethylene Glycol 3350 17 Gm Packet) 17 gm PO DAILYP PRN PRN Reason: Constipation Last Admin: 02/16/23 07:07 Dose: 17 gm Potassium Chloride (Potassium Chloride 20 Meq Tablet) 40 meq PO UD PRN PRN Reason: Potssium is 3-3.5 Potassium Chloride (Potassium Chloride 20 Meq Tablet) 40 meq PO UD PRN PRN Reason: Potassium < 3 Senna (Sennosides 1 Tablet) 2 tab PO DAILYP PRN PRN Reason: Constipation Last Admin: 02/16/23 07:07 Dose: 2 tab Sodium Bicarbonate (Sodium Bicarbonate 650 Mg Tablet) 1,300 mg PO BID [facility] Stop: 02/17/23 08:59 Last Admin: 02/15/23 20:05 Dose: 1,300 mg Sodium Chloride (0.9 % Sodium Chloride 10 Ml Syringe) 10 ml IV Q8 [facility] Last Admin: 02/16/23 06:13 Dose: Not Given Warfarin Sodium (Warfarin Per Pharmacy) 1 order PO UD [facility] A/P Narrative A/P Narrative: A: *UTI(E.coli), complicated: *Bacteremia (E.coli): *Severe Sepsis w/Hypotension: 2/2 above, resolved -elevated PCT improving -afebrile o/n, leukocytosis improving *MACRINA on CKD III: -improved *Volume depletion: improved *Metabolic Acidosis: 2/2 above *Hyponatremia/Hypophos: *Encephalopathy (lethargy/mild confusion): slowly getting better. suspect underlying MCI *Suspect MCI: *Anemia: *PAF: on warfarin. currently in sinus *Chronic pain: Follows with pain clinic *HTN: *Hypothyroidism: Continue Synthroid *GERD: *Obesity: BMI 35, lifestyle modifications *Generalized weakness/deconditioning: P: -Rocephin, 7-10 days total abx -Monitor renal function/UOP -Monitor replace electrolytes -pcr flu/rsv/covid neg -restarted home BB, restart home ACEI/torsemide -PT/OT -CM for placement -ppx: Warfarin per pharmacy / home H2 Time Spent With Patient Time: Total time spent is greater than 50% in coordination of care (as documented) at patient's floor/unit and/or counseling patient: Subsequent: Total time with patient: 35 - 49 minutes QUALITY VTE Deep Vein Thrombosis/Pulmonary Embolism Present on Admission: No
--- NOTE | 2023-02-16 09:12 | EKG ---
[facility] Test Date: 2023-02-12 Pat Name: Elaine Pittman Department: ED Room: Gender: Female [employer] Tech: SB : 1940 Requested By: Daron Reeves Order Number: [id number] Reading MD: Christian Mendoza Measurements Intervals [place] Rate: 133 P: 7 TX: 166 QRS: -4 QRSD: 83 T: 171 QT: 278 QTc: 414 Interpretive Statements Sinus tachycardia Not significantly changed compared to prior Electronically Signed On 02-16-2023 9:11:49 PDT by Christian Mendoza /store/[email or web address]/[id number]/[id number]
[2023-02-16] MEDS: FAMOTIDINE 20 MG TABLET PO SCH ×2 (09:20→21:29)
[2023-02-16] MEDS: LISINOPRIL 20 MG TABLET PO SCH (09:20)
[2023-02-16] MEDS: METOPROLOL TARTRATE 25 MG TABLET PO SCH ×2 (09:20→21:28)
[2023-02-16] MEDS: SODIUM BICARBONATE 650 MG TABLET PO SCH ×2 (09:21→21:28)
[2023-02-16] MEDS: cefTRIAXone 2 GM in DEXTROSE 5% IN WATER 50 ML IV SCH (09:21)
[2023-02-16] MEDS: TORSEMIDE 10 MG TABLET PO SCH (09:21)
[2023-02-16] MEDS: DOCUSATE SODIUM 100 MG CAPSULE PO SCH ×2 (09:21→21:29)
[2023-02-16] MEDS: ACETAMINOPHEN 325 MG TABLET PO PRN (09:35)
[2023-02-16] MEDS ORDERED: WARFARIN 1 MG TABLET PO SCH (14:00)
[2023-02-17] MEDS: ONDANSETRON 4 MG/2 ML VIAL IV PRN ×2 (05:30→11:19)
[2023-02-17] MEDS: 0.9 % SODIUM CHLORIDE 10 ML SYRINGE IV SCH ×2 (05:31→13:43)
[2023-02-17 06:57] LABS: INR 3.2 (0.9-1.1); Prothrombin Time 33.6 sec (11.9-14.5)
[2023-02-17] MEDS: LEVOTHYROXINE 125 MCG TABLET PO SCH (06:59)
--- NOTE | 2023-02-17 07:49 | Internal Med Progress Note ---
SUBJECTIVE Subjective Patient information: Note initiated : 02/17/23 at 7:48 am Service Date, if different from initiated Date: [] Patient: Elaine Pittman a 82 y/o F admitted on 02/12/23. Chief Complaint: [] Interval history: History of present illness: Ms. Pittman is a 82 year old F presents to ED with generalized weakness, malaise, frontal headache with sinus congestion for oral intake, chills although denies fever. Nausea with an episode of vomiting last night. She also complains of urinary urgency. Denies cough shortness of breath or chest pain. No diarrhea. Symptoms have been going on for about 3 days. Patient states her was ill prior to her with the flu and that she started feeling ill. Today her weakness and lethargy continued to become worse where she could barely stay awake. In the ED she was evaluated found of a fever of 102. She was tachycardic in the 120s. Blood pressure 94/45. Lactate was fine but procalcitonin is quite elevated 55. Flu B screen was positive. She had a leukocytosis 12. And a creatinine of 3.0 on a [id number]-kh-skgd with a last normal creatinine in last June. Chest x-ray unremarkable. Patient given IV fluids and antibiotics started in ED. Also Tamiflu given in ED. PCR testing was neg for Flu B, also neg for rsv/covid. 02/13 11/19 BC bottles with GNB. Patient required several fluid boluses last night but did not need vasopressors. Patient feeling better today. On Zosyn pending blood cultures and urine cultures pending. Febrile overnight 02/14 Patient states she is feeling little better today and slept better. Blood cultures and E. coli is likely what the urine cultures will grow. Still febrile overnight. Creatinine/pct improving mild hypophosphatemia. 02/15 Patient says she slept so-so. Feels weak. Family concerned about going home and encourage her to accept SNF which is now accepting. Renal function improving. 02/16 Feels weak but otherwise no new complaints or overnight events. Restarted home torsemide today Review of Systems: Pertinent positives as above. Denies chest or abdominal pain/cough/dyspnea/diarrhea. Remaining 10 point review of system reviewed negative PHYSICAL EXAM General: Awake, No acute Distress, obese Eyes/N/T: EOMI, no scleral icterus, Head/Neck: neck supple, full ROM, CV: Mild tachycardia but regular,, 2/6SM Pulm: Clear b/l, no wheezing/rhonchi/rales, no respiratory distress Abd: soft, nontender, +BS x4 Ext: no clubbing/cyanosis, trace b/l LE edema, nontender Neuro: alert, no focal deficits, moves all extremities, , sensations intact b/l upper/lower Psychiatric: Skin: warm/dry, normal color Constitutional Vitals: Vital Signs Temp Pulse Resp BP Pulse Ox O2 Del Method O2 Flow Rate 98.6 F 77 18 153/90 95 Room Air 2 02/17/23 07:33 02/17/23 07:33 02/17/23 07:33 02/17/23 07:33 02/17/23 07:33 02/17/23 07:33 02/14/23 04:01 Period Temp Pulse Resp BP Sys/Oh Pulse Ox O2 Del Method O2 Flow Rate Last 24 Hr 97.2 F-98.6 F 18-90 18-22 118-165/83-96 95-100 Room Air-Room Air Intake and Output 02/16/23 02/17/23 02/17/23 19:59 03:59 11:59 Intake Total 470 100 Output Total 1100 500 300 Balance -630 -500 -200 Weight 95.3 kg Intake & Output: Intake & Output 02/16/23 02/17/23 02/17/23 19:59 03:59 11:59 Intake Total 470 100 Output Total 1100 500 300 Balance -630 -500 -200 Weight 95.3 kg Intake: Oral 470 100 Output: Void Amount 1100 500 300 Other: Meal Dinner Percent of Meal Consumed 10 Feeding Ability Assist with Tray Set Up Urine Appearance Clear Clear Urine Color Yellow Dark Yellow Stool Size Moderate Small Stool Color Brown Brown Yellow Stool Consistency Soft Soft # Bowel Movements 2 OBJ DATA Labs 02/13/23 05:35 02/14/23 05:52 Labs: Abnormal Lab Results 02/17/23 02/16/23 02/15/23 05:51 05:53 05:51 PT 33.6 H 31.1 H 27.8 H INR 3.2 H 2.9 H 2.5 H Meds: Medications Acetaminophen (Acetaminophen 325 Mg Tablet) 650 mg PO Q6HP PRN; Protocol PRN Reason: Per Pain Protocol/Fever > 101 Last Admin: 02/16/23 09:35 Dose: 650 mg Albuterol/Ipratropium (Ipratropium/Albuterol 3 Ml Ampul.Neb) 3 ml NEB Q4HP PRN PRN Reason: Shortness Of Breath Docusate Sodium (Docusate Sodium 100 Mg Capsule) 100 mg PO BID [facility] Last Admin: 02/16/23 21:29 Dose: 100 mg Famotidine (Famotidine 20 Mg Tablet) 20 mg PO BID [facility] Last Admin: 02/16/23 21:29 Dose: 20 mg Potassium Chloride 40 meq/ (Dextrose) 520 mls @ 130 mls/hr IV UD PRN PRN Reason: Potassium < 3 Magnesium Sulfate (Magnesium Sulfate) 2 gm in 50 mls @ 50 mls/hr IV UD PRN PRN Reason: Magnesium </= 1.6 Ceftriaxone Sodium 2 gm/ (Dextrose) 50 mls @ 100 mls/hr IV Q24H [facility] Last Infusion: 02/16/23 10:25 Dose: Infused Levothyroxine Sodium (Levothyroxine 125 Mcg Tablet) 125 mcg PO ACB [facility] Last Admin: 02/17/23 06:59 Dose: 125 mcg Lisinopril (Lisinopril 20 Mg Tablet) 20 mg PO QAM [facility] Last Admin: 02/16/23 09:20 Dose: 20 mg Metoprolol Tartrate (Metoprolol Tartrate 5 Mg/5 Ml Vial) 5 mg IV Q2HP PRN PRN Reason: Tachyarrhythmias HR>110 Metoprolol Tartrate (Metoprolol Tartrate 25 Mg Tablet) 25 mg PO BID [facility] Last Admin: 02/16/23 21:28 Dose: 25 mg Ondansetron HCl (Ondansetron 4 Mg/2 Ml Vial) 4 mg IV Q4HP PRN PRN Reason: Nausea And Vomiting Last Admin: 02/17/23 05:30 Dose: 4 mg Polyethylene Glycol (Polyethylene Glycol 3350 17 Gm Packet) 17 gm PO DAILYP PRN PRN Reason: Constipation Last Admin: 02/16/23 07:07 Dose: 17 gm Potassium Chloride (Potassium Chloride 20 Meq Tablet) 40 meq PO UD PRN PRN Reason: Potssium is 3-3.5 Potassium Chloride (Potassium Chloride 20 Meq Tablet) 40 meq PO UD PRN PRN Reason: Potassium < 3 Senna (Sennosides 1 Tablet) 2 tab PO DAILYP PRN PRN Reason: Constipation Last Admin: 02/16/23 07:07 Dose: 2 tab Sodium Bicarbonate (Sodium Bicarbonate 650 Mg Tablet) 1,300 mg PO BID [facility] Stop: 02/17/23 08:59 Last Admin: 02/16/23 21:28 Dose: 1,300 mg Sodium Chloride (0.9 % Sodium Chloride 10 Ml Syringe) 10 ml IV Q8 [facility] Last Admin: 02/17/23 05:31 Dose: 10 ml Torsemide (Torsemide 10 Mg Tablet) 10 mg PO QDAY [facility] Last Admin: 02/16/23 09:21 Dose: 10 mg Warfarin Sodium (Warfarin Per Pharmacy) 1 order PO UD [facility] A/P Narrative A/P Narrative: A: *UTI(E.coli), complicated: *Bacteremia (E.coli): *Severe Sepsis w/Hypotension: 2/2 above, resolved -elevated PCT improving -afebrile o/n, leukocytosis improving *MACRINA on CKD III: -improved *Volume depletion: improved *Metabolic Acidosis: 2/2 above *Hyponatremia/Hypophos: *Encephalopathy (lethargy/mild confusion): slowly getting better. suspect underlying MCI *Suspect MCI: *Anemia: *PAF: on warfarin. currently in sinus *Chronic pain: Follows with pain clinic *HTN: *Hypothyroidism: Continue Synthroid *GERD: *Obesity: BMI 35, lifestyle modifications *Generalized weakness/deconditioning: P: -Rocephin, 7-10 days total abx -Monitor renal function/UOP -Monitor replace electrolytes -pcr flu/rsv/covid neg -restarted home BB, restarted home ACEI/torsemide -PT/OT -CM for placement -ppx: Warfarin per pharmacy / home H2 Time Spent With Patient Time: Total time spent is greater than 50% in coordination of care (as documented) at patient's floor/unit and/or counseling patient: Subsequent: Total time with patient: 35 - 49 minutes QUALITY VTE Deep Vein Thrombosis/Pulmonary Embolism Present on Admission: No
[2023-02-17] MEDS: FAMOTIDINE 20 MG TABLET PO SCH (10:22)
[2023-02-17] MEDS: METOPROLOL TARTRATE 25 MG TABLET PO SCH (10:22)
[2023-02-17] MEDS: TORSEMIDE 10 MG TABLET PO SCH (10:22)
[2023-02-17] MEDS: cefTRIAXone 2 GM in DEXTROSE 5% IN WATER 50 ML IV SCH (10:23)
[2023-02-17] MEDS: LISINOPRIL 20 MG TABLET PO SCH (10:23)
[2023-02-17] MEDS: DOCUSATE SODIUM 100 MG CAPSULE PO SCH (10:23)
--- NOTE | 2023-02-17 11:59 | Internal Med Progress Note ---
SUBJECTIVE Subjective Patient information: Note initiated : 02/17/23 at 11:57 am Service Date, if different from initiated Date: [] Patient: Elaine Pittman a 82 y/o F admitted on 02/12/23. Chief Complaint: [] Interval history: History of present illness: Ms. Pittman is a 82 year old F presents to ED with generalized weakness, malaise, frontal headache with sinus congestion for oral intake, chills although denies fever. Nausea with an episode of vomiting last night. She also complains of urinary urgency. Denies cough shortness of breath or chest pain. No diarrhea. Symptoms have been going on for about 3 days. Patient states her was ill prior to her with the flu and that she started feeling ill. Today her weakness and lethargy continued to become worse where she could barely stay awake. In the ED she was evaluated found of a fever of 102. She was tachycardic in the 120s. Blood pressure 94/45. Lactate was fine but procalcitonin is quite elevated 55. Flu B screen was positive. She had a leukocytosis 12. And a creatinine of 3.0 on a gennt-le-gpqt with a last normal creatinine in last June. Chest x-ray unremarkable. Patient given IV fluids and antibiotics started in ED. Also Tamiflu given in ED. PCR testing was neg for Flu B, also neg for rsv/covid. 02/13 11/19 BC bottles with GNB. Patient required several fluid boluses last night but did not need vasopressors. Patient feeling better today. On Zosyn pending blood cultures and urine cultures pending. Febrile overnight 02/14 Patient states she is feeling little better today and slept better. Blood cultures and E. coli is likely what the urine cultures will grow. Still febrile overnight. Creatinine/pct improving mild hypophosphatemia. 02/15 Patient says she slept so-so. Feels weak. Family concerned about going home and encourage her to accept SNF which is now accepting. Renal function improving. 02/16 Feels weak but otherwise no new complaints or overnight events. Restarted home torsemide today 02/17 Patient doing well. No overnight event or new complaints. Patient appears to be getting her strength back and feeling stronger. Family at bedside. Review of Systems: Pertinent positives as above. Denies chest or abdominal pain/c ough/dyspnea/diarrhea. Remaining 10 point review of system reviewed negative PHYSICAL EXAM General: Awake, No acute Distress, obese Eyes/N/T: EOMI, no scleral icterus, Head/Neck: neck supple, full ROM, CV: Mild tachycardia but regular,, 2/6SM Pulm: Clear b/l, no wheezing/rhonchi/rales, no respiratory distress Abd: soft, nontender, +BS x4 Ext: no clubbing/cyanosis, trace b/l LE edema, nontender Neuro: alert, no focal deficits, moves all extremities, , sensations intact b/l upper/lower Psychiatric: Skin: warm/dry, normal color Constitutional Vitals: Vital Signs Temp Pulse Resp BP Pulse Ox O2 Del Method O2 Flow Rate 98.6 F 77 18 153/90 95 Room Air 2 02/17/23 07:33 02/17/23 07:33 02/17/23 07:33 02/17/23 07:33 02/17/23 07:33 02/17/23 08:00 02/14/23 04:01 Period Temp Pulse Resp BP Sys/Oh Pulse Ox O2 Del Method O2 Flow Rate Last 24 Hr 97.2 F-98.6 F 18-90 18-22 144-165/83-96 95-100 Room Air-Room Air Intake and Output 02/16/23 02/17/23 02/17/23 19:59 03:59 11:59 Intake Total 470 270 Output Total 1100 500 500 Balance -630 -500 -230 Weight 95.3 kg Intake & Output: Intake & Output 02/16/23 02/17/23 02/17/23 19:59 03:59 11:59 Intake Total 470 270 Output Total 1100 500 500 Balance -630 -500 -230 Weight 95.3 kg Intake: IV 50 Rocephin 2 gm In Dextrose 5% in 50 Water 50 ml @ 100 mls/hr IV Q24H COUNT INCLUDES THE [facility] Rx#:[id number] Oral 470 220 Output: Void Amount 1100 500 500 Other: Meal Dinner Breakfast Percent of Meal Consumed 10 25% Feeding Ability Assist with Tray Set Up Assist with Tray Set Up Urine Appearance Clear Clear Clear Urine Color Yellow Dark Yellow Yellow Stool Size Moderate Small Stool Color Brown Brown Yellow Stool Consistency Soft Soft # Bowel Movements 1 OBJ DATA Labs 02/13/23 05:35 02/14/23 05:52 Labs: Abnormal Lab Results 02/17/23 02/16/23 02/15/23 05:51 05:53 05:51 PT 33.6 H 31.1 H 27.8 H INR 3.2 H 2.9 H 2.5 H Meds: Medications Acetaminophen (Acetaminophen 325 Mg Tablet) 650 mg PO Q6HP PRN; Protocol PRN Reason: Per Pain Protocol/Fever > 101 Last Admin: 02/16/23 09:35 Dose: 650 mg Albuterol/Ipratropium (Ipratropium/Albuterol 3 Ml Ampul.Neb) 3 ml NEB Q4HP PRN PRN Reason: Shortness Of Breath Famotidine (Famotidine 20 Mg Tablet) 20 mg PO BID [facility] Last Admin: 02/17/23 10:22 Dose: 20 mg Potassium Chloride 40 meq/ (Dextrose) 520 mls @ 130 mls/hr IV UD PRN PRN Reason: Potassium < 3 Magnesium Sulfate (Magnesium Sulfate) 2 gm in 50 mls @ 50 mls/hr IV UD PRN PRN Reason: Magnesium </= 1.6 Ceftriaxone Sodium 2 gm/ (Dextrose) 50 mls @ 100 mls/hr IV Q24H [facility]CLUD[facility] Last Infusion: 02/17/23 10:59 Dose: Infused Levothyroxine Sodium (Levothyroxine 125 Mcg Tablet) 125 mcg PO ACB [facility] Last Admin: 02/17/23 06:59 Dose: 125 mcg Lisinopril (Lisinopril 20 Mg Tablet) 20 mg PO QAM [facility] Last Admin: 02/17/23 10:23 Dose: 20 mg Metoprolol Tartrate (Metoprolol Tartrate 5 Mg/5 Ml Vial) 5 mg IV Q2HP PRN PRN Reason: Tachyarrhythmias HR>110 Metoprolol Tartrate (Metoprolol Tartrate 25 Mg Tablet) 25 mg PO BID [facility] Last Admin: 02/17/23 10:22 Dose: 25 mg Ondansetron HCl (Ondansetron 4 Mg/2 Ml Vial) 4 mg IV Q4HP PRN PRN Reason: Nausea And Vomiting Last Admin: 02/17/23 11:19 Dose: 4 mg Polyethylene Glycol (Polyethylene Glycol 3350 17 Gm Packet) 17 gm PO DAILYP PRN PRN Reason: Constipation Last Admin: 02/16/23 07:07 Dose: 17 gm Potassium Chloride (Potassium Chloride 20 Meq Tablet) 40 meq PO UD PRN PRN Reason: Potssium is 3-3.5 Potassium Chloride (Potassium Chloride 20 Meq Tablet) 40 meq PO UD PRN PRN Reason: Potassium < 3 Senna (Sennosides 1 Tablet) 2 tab PO DAILYP PRN PRN Reason: Constipation Last Admin: 02/16/23 07:07 Dose: 2 tab Sodium Chloride (0.9 % Sodium Chloride 10 Ml Syringe) 10 ml IV Q8 [facility] Last Admin: 02/17/23 05:31 Dose: 10 ml Torsemide (Torsemide 10 Mg Tablet) 10 mg PO QDAY [facility]CLUD[facility] Last Admin: 02/17/23 10:22 Dose: 10 mg Warfarin Sodium (Warfarin Per Pharmacy) 1 order PO UD [facility] A/P Narrative A/P Narrative: A: *UTI(E.coli), complicated: *Bacteremia (E.coli): *Severe Sepsis w/Hypotension: 2/2 above, resolved -elevated PCT improving -afebrile o/n, leukocytosis improving *MACRINA on CKD III: -improved *Volume depletion: improved *Metabolic Acidosis: 2/2 above *Hyponatremia/Hypophos: *Encephalopathy (lethargy/mild confusion): slowly getting better. suspect underlying MCI *Suspect MCI: *Anemia: *PAF: on warfarin. currently in sinus *Chronic pain: Follows with pain clinic *HTN: *Hypothyroidism: Continue Synthroid *GERD: *Obesity: BMI 35, lifestyle modifications *Generalized weakness/deconditioning: P: -Rocephin, 7-10 days total abx -Monitor renal function/UOP -Monitor replace electrolytes -pcr flu/rsv/covid neg -restarted home BB, restarted home ACEI/torsemide -PT/OT -CM for placement -ppx: Warfarin per pharmacy / home H2 Time Spent With Patient Time: Total time spent is greater than 50% in coordination of care (as documented) at patient's floor/unit and/or counseling patient: Subsequent: Total time with patient: 35 - 49 minutes QUALITY VTE Deep Vein Thrombosis/Pulmonary Embolism Present on Admission: No
[2023-02-17] MEDS: ACETAMINOPHEN 325 MG TABLET PO PRN (12:43)
== END 2023-02-17 14:50 | DRG 871 ==
LOC: ED 09:37 → ICU 14:20 → MEDSUR 02-14 14:36
PROVIDERS: ADMIT Internal Medicine; ATTEND Internal Medicine